=== PATIENT | male | born 1960 | race Caucasian/White ===

== ENCOUNTER 2017-08-18 20:06 | Emergency (ER) | payer BC | END 2017-08-18 21:09 | disposition home or self-care (01) | LOC: ER 20:06 | DX: S30.823A Blister (nonthermal) of scrotum and testes, initial encounter (principal); E11.9 Type 2 diabetes mellitus without complications; E78.00 Pure hypercholesterolemia, unspecified; G89.29 Other chronic pain; X58.XXXA Exposure to other specified factors, initial encounter; Y93.89 Activity, other specified; Y92.89 Other specified places as the place of occurrence of the external cause; Y99.8 Other external cause status | CPT/HCPCS: 99281 ==

== ENCOUNTER → 2018-05-05 | Outpatient (CLI) | payer BC ==
[2017-08-18 20:28] VITALS: BP 141/78
[~2018-05-05] MED LIST: ATOR40TA59 PO; LEVO175T5 PO; METF500T16 PO; hydrocort PO
--- NOTE | 2018-05-05 11:46 | KCIC ---
MRI of the lumbar spine without contrast 05/05/2018 CLINICAL HISTORY: Low back pain which radiates down the left hip worsening over last several months TECHNIQUE: Unenhanced T1-weighted and T2-weighted sagittal and axial and inversion recovery sagittal images of the lumbar spine were obtained. FINDINGS: Minimal S-shaped curvature of the thoracolumbar spine is seen. Degenerative signal changes are seen involving all of the disks of the lumbar spine. Degenerative signal changes are seen within the marrow surrounding these discs. Loss of height of the L4-5 and L5-S1 discs is noted. The conus medullaris is normal morphology, position, and signal characteristics. At the L1-2 disc space there is a mild to moderate generalized disc bulge. This is eccentric to the right. Superimposed on this disc bulge is a right paracentral focal disc protrusion. This measures 4 mm in AP diameter. Degenerative changes are seen involving the facet joints bilaterally. There is mild ligamentum flavum hypertrophy bilaterally. There is prominence of the posterior epidural fat. These findings when combined result in mild to moderate right greater than left central spinal canal stenosis. No neural foraminal stenosis is seen. At the L2-3 disc space there is a moderate generalized disc bulge. This is eccentric to the right. Degenerative changes are seen involving the facet joints bilaterally. There is moderate ligament flavum hypertrophy bilaterally. There is prominence of the posterior epidural fat. These findings when combined result in mild central spinal canal stenosis. No neural foraminal stenosis is seen. At the L3-4 disc space there is a mild to moderate generalized disc bulge. This is eccentric to the right. Degenerative changes are seen involving the facet joints bilaterally. There is mild ligamentum flavum hypertrophy bilaterally. There is prominence of the posterior epidural fat. These findings when combined result in mild central spinal canal stenosis. No neural foraminal stenosis is seen. At the L4-5 disc space there is a mild generalized disc bulge. Superimposed on this disc bulge is a right paracentral focal disc protrusion. This measures 2 mm in AP diameter. Degenerative changes are seen involving the facet joints bilaterally. There is moderate ligamentum flavum hypertrophy bilaterally. There is prominence of the posterior epidural fat. These findings when combined result in mild central spinal canal stenosis. No neural foraminal stenosis is seen. At the L5-S1 disc space there is a mild generalized disc bulge. Superimposed on this disc bulge is a focal central disc osteophyte complex. This measures 5 mm in AP diameter. Degenerative changes are seen involving the facet joints bilaterally. These findings when combined result in mild central spinal canal stenosis. No neural foraminal stenosis is seen. IMPRESSION: The changes of degenerative disc disease are seen throughout the lumbar spine. These findings result in mild to moderate right greater than left central spinal canal stenosis at L1-2 and mild central spinal canal stenosis at L2-3, L3-4 and L4-5 and L5-S1. No neural foraminal stenosis is seen. Electronically signed by: Wilbur Alvarez MD (05/05/2018 11:41 AM) [facility]
== END | disposition home or self-care (01) ==
LOC: KCIC MRI 09:22
PROVIDERS: ATTEND Orthopaedic Surgery
DX: M51.16 Intervertebral disc disorders with radiculopathy, lumbar region (principal); M48.07 Spinal stenosis, lumbosacral region; M47.26 Other spondylosis with radiculopathy, lumbar region; M16.12 Unilateral primary osteoarthritis, left hip
CPT/HCPCS: 72148

== ENCOUNTER → 2018-05-29 | Outpatient (CLI) | payer BC ==
[2017-08-18 20:28] VITALS: BP 141/78
[~2018-05-29] MED LIST changes: +ACET500T68 PO; +CHOL2000 PO; +DULA1.5P SQ; +HYDR-2761 PO; +HYDR5TAB3 PO
[2018-05-29 09:12] LABS: BASO # 0.1 x10^3/uL (0.0-0.2); BASO % 1 % (0-3); EOS # 0.2 x10^3/uL (0.0-0.7); EOS % 2 % (0-3); HEMATOCRIT 41.4 % (39.0-53.0); HEMOGLOBIN 13.8 g/dL (13.0-17.5); LYMPH % 38 % (24-48); MEAN CORPUSCULAR HEMOGLOBIN 28 pg (25-35); MEAN CORPUSCULAR HGB CONC 33 g/dL (31-37); MEAN CORPUSCULAR VOLUME 84 fL (79-100); MONO # 0.7 x10^3/uL (0.0-1.1); MONO % 8 % (0-9); NEUT % 51 % (31-73); PLATELET COUNT 265 x10^3/uL (140-400); RED BLOOD COUNT 4.95 x10^6/uL (4.30-5.70); WHITE BLOOD COUNT 7.9 x10^3/uL (4.0-11.0)
[2018-05-29 09:25] LABS: ALBUMIN 3.5 g/dL (3.4-5.0); CREATININE 0.9 mg/dL (0.7-1.3); GFR 87.3; POTASSIUM 4.3 mmol/L (3.5-5.1)
[2018-05-29 09:26] LABS: PROTHROMBIN TIME PATIENT 12.1 SEC (11.7-14.0)
[2018-05-29 09:27] LABS: BILIRUBIN,URINE NEGATIVE (NEG); CLARITY,URINE CLEAR; COLOR,URINE YELLOW; NITRITE,URINE NEGATIVE (NEG); PROTEIN,URINE NEGATIVE (NEG-TRACE); UROBILINOGEN,URINE 0.2 mg/dL (0.2 mg/dL)
[2018-05-29 09:39] LABS: BACTERIA,URINE FEW /HPF (0-FEW); SQUAMOUS EPITHELIAL CELL,UR OCC /LPF
[2018-05-29 09:43] LABS: RBC,URINE 0 /HPF (0-2)
--- NOTE | 2018-05-29 12:06 | EKG ---
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
--- NOTE | 2018-05-29 13:06 | RAD ---
Chest, 2 views, 05/29/2018: HISTORY: Hyperlipidemia, joint replacement class The heart size is normal. No pulmonary infiltrate is seen. There is no evidence of pleural fluid. Mild scattered spurs are present in the spine. IMPRESSION: No acute cardiopulmonary abnormality is detected. Electronically signed by: Spencer Martinez MD (05/29/2018 1:01 PM) [facility]
== END | disposition home or self-care (01) ==
LOC: SURGPAT 13:29
PROVIDERS: ATTEND Orthopaedic Surgery
DX: Z01.818 Encounter for other preprocedural examination (principal); M16.12 Unilateral primary osteoarthritis, left hip; E78.5 Hyperlipidemia, unspecified
CPT/HCPCS: 36415; 71046; 80048; 81001; 82040; 85025; 85610; 85651; 85730; 87086; 87641; 93005

== ENCOUNTER 2018-06-13 09:42 | Inpatient (IN) | payer BC ==
[~2018-06-13] VITALS: Ht 182.9 cm; Wt 118.4 kg
[2018-06-13] VITALS (9 sets, daily range): BP systolic 102–134; BP diastolic 70–82
[~2018-06-13 09:42] MED LIST changes: +HYDROmorphone 2 MG/ML VIAL IV PRN; +IV RINGERS,LACTATED 1000ML 1,000 ML IV SCH; +LIDOCAINE 1% PF 2 ML VIAL. ID PRN; +LIDOCAINE 2% PF 5 ML VIAL. ONE; +MORPHINE SULFATE 4 MG/ML VIAL. IV PRN; +MORPHINE SULFATE 5 MG, KETOROLAC 30MG VIAL 30 MG, ROPIVacaine 0.5% PF 60 ML, EPINEPHrin... INT ART ONE; +NEOSTIGMINE 10 MG/10 ML VIAL. ONE; +ONDANSETRON PF 4 MG/2 ML VIAL. IV PRN; +PROCHLORPERAZINE 10 MG/2 ML VIAL. IV PRN; +PROPOFOL 20 ML IV ONE; +ROCURONIUM 50 MG/5 ML VIAL. ONE; +TRANEXAMIC ACID 1,000 MG in IV NORMAL SALINE 50ML 50 ML INJ ONE; +fentaNYL PF VIAL 100 MCG/2 ML VIAL IV PRN; +fentaNYL PF VIAL 100 MCG/2 ML VIAL ONE
[2018-06-13] MEDS ORDERED: HYDROcodone/APAP 7.5/325MG 1 TAB TABLET ONE (10:20)
[2018-06-13] MEDS ORDERED: HYDROcodone/APAP 7.5/325MG 1 TAB TABLET PO ONE (10:45)
[2018-06-13] MEDS ORDERED: HYDROCORTISONE SOD SUCC/PF 100 MG/2 ML VIAL. ONE (11:15)
[2018-06-13] MEDS ORDERED: DEXAMETHASONE SOD PHOS 20 MG/5 ML VIAL. ONE (11:15)
[2018-06-13] MEDS ORDERED: DESFLURANE 61 TO 120 MINUTES IH ONE (11:15)
[2018-06-13] MEDS ORDERED: ONDANSETRON PF 4 MG/2 ML VIAL. ONE (11:16)
[2018-06-13] MEDS ORDERED: GLYCOPYRROLATE 1 MG/5 ML VIAL. ONE (11:17)
[2018-06-13] MEDS ORDERED: PHENYLEPHRINE 10 MG/ML VIAL. ONE (11:23)
[2018-06-13] MEDS ORDERED: fentaNYL PF VIAL 100 MCG/2 ML VIAL ONE (11:59)
[2018-06-13] MEDS ORDERED: IV NORMAL SALINE 1000ML BAG 1,000 ML IV SCH (13:29)
[2018-06-13] MEDS ORDERED: fentaNYL PF VIAL 100 MCG/2 ML VIAL IV PRN (13:30)
[2018-06-13] MEDS ORDERED: DEXTROSE 50% 25 GM / 50ML DISP.SYRIN. IV PRN (13:30)
[2018-06-13] MEDS ORDERED: PROCHLORPERAZINE 5 MG TABLET. PO PRN (13:30)
[2018-06-13] MEDS ORDERED: oxyCODONE IR 5 MG TABLET PO PRN (13:30)
[2018-06-13] MEDS ORDERED: ZOLPIDEM 5 MG TABLET. PO PRN (13:30)
[2018-06-13] MEDS ORDERED: MORPHINE SULFATE 4 MG/ML VIAL. IV PRN (13:30)
[2018-06-13] MEDS ORDERED: 0.9 % SODIUM CHLORIDE 10 ML DISP.SYRIN. IV PRN (13:30)
[2018-06-13] MEDS ORDERED: CALCIUM CARBONATE 500 MG TAB.CHEW PO PRN (13:30)
[2018-06-13] MEDS ORDERED: diphenhydrAMINE 50 MG/ML VIAL IV PRN (13:30)
[2018-06-13] MEDS ORDERED: PROCHLORPERAZINE 10 MG/2 ML VIAL. ONE (13:45)
[2018-06-13] MEDS: fentaNYL PF VIAL 100 MCG/2 ML VIAL IV PRN ×4 (13:51→14:44)
[2018-06-13] MEDS ORDERED: INSULIN LISPRO 100 UNIT/ML 3ML VIAL. SQ PRN (14:00)
--- NOTE | 2018-06-13 14:22 | RAD ---
PELVIS Clinical Indication: POST OP LEFT HIP Comparison: AP pelvis and left hip May 01, 2018. Findings: There is left hip arthroplasty. On single view the alignment appears anatomic. There is no acute fracture. There is lateral surgical drain. No acute pelvic fracture. Moderate degenerative arthropathy of the right hip. Phleboliths right pelvis. IMPRESSION: Left hip arthroplasty. No acute abnormality. Electronically signed by: Isaiah Remy MD (06/13/2018 2:19 PM) [id number]
--- NOTE | 2018-06-13 15:01 | NUR ---
Arrived to unit from PACU by bed. Awakens easily. C/o dull ache left hip. Left hip dressing is d/i with DAMIAN, IAC and Hemovac drain. Moves all extremities, warm to touch and pedal pulses + bilaterally. LOLA's and SCD's on bilaterally. IVF's intact and infusing. O2 at 2l per n/c. Took sips of lemon ute mountain soda without difficulty. Oriented to room and controls. Side rails up x's 2 with call light within reach. Son at bedside. Cont. monitor.
[2018-06-13] MEDS ORDERED: WARFARIN 7.5 MG TABLET. PO ONE (16:00)
[2018-06-13] MEDS: ONDANSETRON ODT 4 MG TAB.RAPDIS. PO SCH ×2 (17:07→22:55)
[2018-06-13] MEDS: FERROUS SULFATE 325 MG TABLET. PO SCH (17:07)
[2018-06-13] MEDS: metFORMIN 500 MG TABLET PO SCH (17:15)
[2018-06-13] MEDS: INSULIN LISPRO 300 UNITS/3 ML INSULN.PEN. SQ SCH ×2 (17:26→23:03)
[2018-06-13] MEDS: KETOROLAC 30MG VIAL 30 MG, BUPIVACAINE MPF 0.25% 20 ML, EPINEPHrine 0.5 MG in TOTAL VOL... INT ART SCH (17:39)
[2018-06-13] MEDS: ONDANSETRON PF 4 MG/2 ML VIAL. IV SCH ×2 (18:00→22:55)
[2018-06-13] MEDS: oxyCODONE IR 5 MG TABLET PO PRN (20:55)
[2018-06-13] MEDS: HYDROCORTISONE 10 MG TABLET PO SCH (20:55)
--- NOTE | 2018-06-13 21:09 | NUR ---
LR IVF still running and decreased to TKO 10 mls/hr as patient voiding eating and drinking well.
--- NOTE | 2018-06-13 22:41 | PDOC4 ---
Operative Note Operative Note Date of surgery: 06/13/2018 Preoperative diagnosis: Degenerative joint disease left hip Postoperative diagnosis: Same Operative procedure: Left total hip arthroplasty Surgeon: Bobbi Assist: Teri Meza Anesthesia: Gen. Estimated blood loss: 250 mL Complications: None Specimens: Femoral head to pathology Operative indications: A she is a 58-year-old male with long-standing left hip pain significantly worsening unresponsive to nonoperative management and increasingly limiting to his activities of daily living. We talked about possibility of total hip arthroplasty risks benefits postoperative course of the procedure including the possibility of fracture infection leg length inequality instability premature wear or loosening medical or other anesthetic complications among others including nerve or blood vessel damage. All his questions were answered he wishes to proceed with surgical evaluation and treatment. Operative text: Patient was identified procedure verified patient placed in the supine position on the operating table. After adequate amounts of general anesthesia were administered he was placed in the decubitus position left side up using the Stulberg hip positioners and all bony prominences were well- padded. The left hip was prepped and draped in standard sterile fashion and after timeout was performed patient procedure identified and verified curvilinear incision was made over the greater trochanter constituting a posterior approach to the left hip. Iliotibial band and gluteal fascia were split in line with their fibers Charnley retractor was placed bleeding points controlled by electrocautery external rotators were detached from their insertion hip capsule was split in a T fashion the hip was dislocated femoral head was removed after a femoral neck cut using the guide and femoral head was sized at approximately a size 53 mm. The contents of the fovea and labrum were excised after the acetabulum was exposed using headed pins. Reaming was carried out up to a size 57 and a 58 outer diameter hemispherical coated [employer] cluster hole shell was impacted into place in proper version and inclination a single superiorly directed screw was placed for additional fixation and a 40 mm in terminal diameter standard acetabular liner was impacted into place. The femur was then prepared drilled and broached with a size 16 femoral component best reproduction of stability and offset was achieved with a high offset component +0 and he was noted to have excellent stability mormon of leg length and offset with stability to 60 internal rotation at 90 hip flexion. Trial femoral component was removed and a size 16 Synergy porous high offset femoral component was impacted in place in proper version with a 40 mm Oxinium modular femoral head +0 that was impacted to engage the Carrillo taper. Similar offset and stability were noted as above thorough irrigation again carried out normal saline solution hip capsule and external rotators were reattached transosseously with #5 Ethibond suture Hemovac drain and pain catheter were placed pain catheter mixture was injected throughout the joint capsule and subcutaneous tissues fashion was closed with #1 PDS strata fix suture subcutaneous closure with buried Vicryl suture skin closure with subcuticular strata fix 3-0 Monocryl apollo drain was placed patient was returned to recovery room in stable condition having tolerated procedure well. physiotherapy assistant was provided by Denis Gupta and later relieved by Teri Simeon who assisted in the prepping draping retraction and skin closure JENNIFER HURD MD Jun 13, 2018 22:41
[2018-06-14 01:41] VITALS: BP 129/77
[2018-06-14] MEDS: oxyCODONE IR 5 MG TABLET PO PRN ×2 (03:35→10:10)
[2018-06-14 05:08] LABS: PROTHROMBIN TIME PATIENT 13.9 SEC (11.7-14.0)
[2018-06-14] MEDS ORDERED: MAGNESIUM HYDROXIDE 2,400 MG/30 ML ORAL.SUSP. PO PRN (06:00)
[2018-06-14] MEDS: ONDANSETRON PF 4 MG/2 ML VIAL. IV SCH ×2 (06:04→12:00)
[2018-06-14] MEDS: ONDANSETRON ODT 4 MG TAB.RAPDIS. PO SCH ×2 (06:04→12:00)
[2018-06-14] MEDS: KETOROLAC 30MG VIAL 30 MG, BUPIVACAINE MPF 0.25% 20 ML, EPINEPHrine 0.5 MG in TOTAL VOL... INT ART SCH (06:05)
[2018-06-14] MEDS: traMADol 50 MG TABLET PO SCH ×4 (06:05→23:59)
[2018-06-14] MEDS: INSULIN LISPRO 300 UNITS/3 ML INSULN.PEN. SQ SCH ×3 (06:07→17:11)
[2018-06-14 06:34] VITALS: BP 123/78
[2018-06-14] MEDS: metFORMIN 500 MG TABLET PO SCH ×2 (08:24→17:08)
[2018-06-14] MEDS: FERROUS SULFATE 325 MG TABLET. PO SCH ×2 (08:24→17:08)
[2018-06-14] MEDS: HYDROCORTISONE 10 MG TABLET PO SCH ×2 (08:24→20:54)
[2018-06-14] MEDS: SENNOSIDES/DOCUSATE 8.6/50MG TABLET. PO SCH (08:25)
[2018-06-14] MEDS: MULTIVITAMIN with MINERAL TABLET. PO SCH (08:25)
[2018-06-14] MEDS: CHOLECALCIFEROL (VITAMIN D3) 1,000 UNIT TABLET PO SCH (08:26)
[2018-06-14] MEDS: ACETAMINOPHEN 500 MG TABLET PO SCH ×3 (08:26→20:58)
[2018-06-14] MEDS: LEVOTHYROXINE 175 MCG TABLET PO SCH (10:08)
[2018-06-14] MEDS ORDERED: ONDANSETRON PF 4 MG/2 ML VIAL. IV PRN (12:00)
[2018-06-14] MEDS ORDERED: ONDANSETRON ODT 4 MG TAB.RAPDIS. PO PRN (12:00)
[2018-06-14] MEDS ORDERED: BISACODYL 10 MG SUPP.RECT. PR PRN (16:00)
[2018-06-14] MEDS ORDERED: WARFARIN 5 MG TABLET. PO ONE (16:30)
--- NOTE | 2018-06-14 16:36 | NUR ---
Pharmacy Warfarin Dosing Note S:Pharmacy consulted to assist with anticoagulation therapy started 06/13/18 with target INR: 1.6 - 2.5 O:FABRICE LANCE is a 58 year old M with MEDH[facility] LABS: Last INR: 1.1 Last HGB: Last HCT: Last PLT: Last dose of 7.5 mg given on 06/13/18 at 1708 Previous Regimen: Vitamin K given: N Drug Interaction Changes: Ongoing Drug Interactions: A:INR of 1.1 is below desired range. Target range for this patient is: 1.6 - 2.5. P: Warfarin dose: 5 mg Today at 1600 Bridge Therapy: None Next INR due tomorrow. Pharmacy anticoagulation service will continue to follow. Gurpreet Minor [facility], 06/14/18 1765
[2018-06-14 17:06] VITALS: BP 124/80
--- NOTE | 2018-06-14 17:07 | NUR ---
original surgical dressing removed; tolerated well. IAC (blue tip intact ) and Hemovac removed without difficulty; tolerated well. DAMIAN dressing has small amount old drainage at the top of incision.
--- NOTE | 2018-06-14 19:31 | PDOC ---
PROGRESS NOTES Subjective Subjective Problems overnight: Doing well today less pain on ambulation but some hip muscle soreness Objective Vital Signs Vital Signs Date Time Temp Pulse Resp B/P (MAP) Pulse Ox O2 Delivery O2 Flow Rate FiO2 06/14/18 18:12 Room Air 06/14/18 17:06 98.3 82 20 124/80 (95) 96 98.3 06/13/18 16:30 2.0 Physical Exam Kylie drain intact leg lengths equal distal neurovascular status intact good early range of motion Labs Laboratory Tests Test 06/13/18 10:10 06/13/18 10:13 06/13/18 13:57 06/13/18 14:49 Prothrombin Time 13.0 SEC (11.7-14.0) Prothromb Time International Ratio 1.0 (0.8-1.1) Activated Partial Thromboplast Time 28 SEC (24-38) Glucose (Fingerstick) 123 mg/dL (70-99) 261 mg/dL (70-99) 234 mg/dL (70-99) Test 06/13/18 17:06 06/13/18 22:54 06/14/18 03:50 06/14/18 06:03 Glucose (Fingerstick) 193 mg/dL (70-99) 180 mg/dL (70-99) 151 mg/dL (70-99) Prothrombin Time 13.9 SEC (11.7-14.0) Prothromb Time International Ratio 1.1 (0.8-1.1) Test 06/14/18 11:45 06/14/18 17:01 Glucose (Fingerstick) 147 mg/dL (70-99) 151 mg/dL (70-99) Laboratory Tests Test 06/13/18 22:54 06/14/18 03:50 06/14/18 06:03 06/14/18 11:45 Glucose (Fingerstick) 180 mg/dL (70-99) 151 mg/dL (70-99) 147 mg/dL (70-99) Prothrombin Time 13.9 SEC (11.7-14.0) Prothromb Time International Ratio 1.1 (0.8-1.1) Test 06/14/18 17:01 Glucose (Fingerstick) 151 mg/dL (70-99) Imaging Postoperative x-rays show excellent positioning of total hip arthroplasty components Assessment Assessment POD# [1], S/P [total hip arthroplasty] Plan Plan of Care Weightbearing as tolerated standard total hip precautions Coumadin anticoagulation JENNIFER HURD MD Jun 14, 2018 19:31
[2018-06-15] MEDS: ACETAMINOPHEN 500 MG TABLET PO SCH ×4 (02:40→20:58)
[2018-06-15 04:49] LABS: HEMATOCRIT 29.4 % (39.0-53.0); HEMOGLOBIN 9.7 g/dL (13.0-17.5)
[2018-06-15 05:02] LABS: PROTHROMBIN TIME PATIENT 14.6 SEC (11.7-14.0)
[2018-06-15] MEDS: INSULIN LISPRO 300 UNITS/3 ML INSULN.PEN. SQ SCH ×2 (06:00)
--- NOTE | 2018-06-15 06:01 | NUR ---
sliding scale insulin every 6 hours is for PACU use only to be discontinue if pt no longer in PACU
[2018-06-15] MEDS: LEVOTHYROXINE 175 MCG TABLET PO SCH (06:20)
[2018-06-15] MEDS: traMADol 50 MG TABLET PO SCH ×3 (06:21→17:45)
[2018-06-15 06:25] VITALS: BP 112/70
[2018-06-15] MEDS: FERROUS SULFATE 325 MG TABLET. PO SCH ×2 (08:22→16:46)
[2018-06-15] MEDS: CHOLECALCIFEROL (VITAMIN D3) 1,000 UNIT TABLET PO SCH (08:22)
[2018-06-15] MEDS: HYDROCORTISONE 10 MG TABLET PO SCH ×2 (08:22→20:58)
[2018-06-15] MEDS: metFORMIN 500 MG TABLET PO SCH ×2 (08:23→16:46)
[2018-06-15] MEDS: MULTIVITAMIN with MINERAL TABLET. PO SCH (08:23)
[2018-06-15] MEDS: SENNOSIDES/DOCUSATE 8.6/50MG TABLET. PO SCH (08:33)
--- NOTE | 2018-06-15 10:30 | NUR ---
Pharmacy Warfarin Dosing Note S:Pharmacy consulted to assist with anticoagulation therapy started 06/13/18 with target INR: 1.6 - 2.5 O:FABRICE LANCE is a 58 year old M with [facility] LABS: Last INR: 1.2 Last HGB: 9.7 Last HCT: 29.4 Last PLT: - Last dose of 5 mg given on 06/14/18 at 1708 Previous Regimen: Vitamin K given: N Drug Interaction Changes: Ongoing Drug Interactions: A:INR of 1.2 is below desired range. Target range for this patient is: 1.6 - 2.5 P: Warfarin dose: 5 mg Today at 1600 Bridge Therapy: None Next INR due TOMORROW. Pharmacy anticoagulation service will continue to follow. HOUSTON ZAMBRANO [facility], 06/15/18 1034
[2018-06-15] MEDS ORDERED: WARFARIN 5 MG TABLET. PO ONE (16:00)
--- NOTE | 2018-06-15 17:09 | PATHOLOGY ---
[facility] Accession Number: [id number] . 01 Material submitted: . LEFT FEMORAL HEAD . 02 Diagnosis: Femoral head and focally attached soft tissue, left total hip arthroplasty: - Degenerative arthritis. . (JPM:mm; 06/15/2018) [facility]/06/15/2018 . 02 Comment: There is no evidence of malignancy. . (JPM:mm; 06/15/2018) . 02 Electronically signed: . Erlin Oakley MD, Pathologist NPI- [id number] . 01 Gross description: . The specimen is received in formalin, labeled "Markel Kelley, left femoral head", is a femoral head measurin 5.5 x 4.8 x 4.6 cm with attached femoral neck measuring 1.0 cm in length by 3.7 x 3.4 cm. The femoral neck resection margin is smooth and shows dominguez-brown, trabeculated bone. The articular cartilage shows an area of eburnation with the remaining dominguez yellow and irregular. Peripheral osteophytes are identified. Sectioning reveals thinning of the articular cartilage corresponding to the eburnation with the underlying bone, dominguez-yellow, diffusely hemorrhagic. Repair Department Supervisor tissue is submitted in A1 after decalcification. (femoral neck margin = inked blue) ([facility]; 06/13/2018) [facility]S . 02 Pathologist provided ICD-10: M16.12 . 02 CPT . 839800, 522994 Specimen Comment: A courtesy copy of this report has been sent to Specimen Comment: [phone], . Specimen Comment: Report sent to / DR BUSTOS Specimen Comment: A duplicate report has been generated due to demographic updates. Performed at: 01 [facility], [place], [place] [id number] MD Jared Verma MD Phone: [phone] Performed at: 02 [facility] [address] [place] [id number] MD Erlin Oakley MD Phone: [phone]
[2018-06-15 18:29] VITALS: BP 106/65
[2018-06-16] MEDS: traMADol 50 MG TABLET PO SCH ×3 (00:50→11:31)
[2018-06-16] MEDS: ACETAMINOPHEN 500 MG TABLET PO SCH ×3 (03:00→14:27)
[2018-06-16 05:31] LABS: HEMATOCRIT 29.2 % (39.0-53.0); HEMOGLOBIN 9.8 g/dL (13.0-17.5)
[2018-06-16] MEDS: LEVOTHYROXINE 175 MCG TABLET PO SCH (06:13)
[2018-06-16 06:19] VITALS: BP 141/82
[2018-06-16 06:57] LABS: PROTHROMBIN TIME PATIENT 14.4 SEC (11.7-14.0)
[2018-06-16] MEDS: HYDROCORTISONE 10 MG TABLET PO SCH (07:46)
[2018-06-16] MEDS: SENNOSIDES/DOCUSATE 8.6/50MG TABLET. PO SCH (07:47)
[2018-06-16] MEDS: MULTIVITAMIN with MINERAL TABLET. PO SCH (07:47)
[2018-06-16] MEDS: CHOLECALCIFEROL (VITAMIN D3) 1,000 UNIT TABLET PO SCH (07:47)
[2018-06-16] MEDS: FERROUS SULFATE 325 MG TABLET. PO SCH (07:47)
[2018-06-16] MEDS: metFORMIN 500 MG TABLET PO SCH (07:47)
--- NOTE | 2018-06-16 10:56 | NUR ---
Pharmacy Warfarin Dosing Note S: Pharmacy consulted to assist with anticoagulation therapy started 06/13/18 O: NATALIOFABRICE LAMA is a 58 year old M with MEDH[facility] LABS: Last INR: 1.2 Last HGB: 9.8 Last HCT: 29.9 Last PLT: - Last dose of 5 mg given on 06/15/18 at 1708 Vitamin K given: N Ongoing Drug Interactions: Synthroid A:INR of 1.2 is below desired range. Target range for this patient is: 1.6 - 2.5 P: Warfarin dose: 8 mg today prior to discharge Discharge patient on warfarin 6 mg/day Next INR due June 19 Outpatient Pharmacy anticoagulation service will continue to follow. SHELBY ALANIZ [facility], 06/16/18 [id number]
--- NOTE | 2018-06-16 12:01 | PDOC ---
PROGRESS NOTES Subjective Subjective Problems overnight: A bit more sore today but getting up and around well Objective Vital Signs Vital Signs Date Time Temp Pulse Resp B/P (MAP) Pulse Ox O2 Delivery O2 Flow Rate FiO2 06/16/18 11:31 Room Air 06/16/18 06:19 98.3 72 18 141/82 (101) 96 98.3 06/15/18 20:00 2.0 Physical Exam Leg lengths equal good stability distal neurovascular status intact apollo drain intact Labs Laboratory Tests Test 06/14/18 17:01 06/14/18 20:29 06/15/18 04:35 06/15/18 06:32 Glucose (Fingerstick) 151 mg/dL (70-99) 138 mg/dL (70-99) 105 mg/dL (70-99) Hemoglobin 9.7 g/dL (13.0-17.5) Hematocrit 29.4 % (39.0-53.0) Mean Corpuscular Hemoglobin Concent 33 g/dL (31-37) Prothrombin Time 14.6 SEC (11.7-14.0) Prothromb Time International Ratio 1.2 (0.8-1.1) Test 06/15/18 11:40 06/15/18 16:39 06/15/18 21:04 06/16/18 04:30 Glucose (Fingerstick) 132 mg/dL (70-99) 137 mg/dL (70-99) 137 mg/dL (70-99) Hemoglobin 9.8 g/dL (13.0-17.5) Hematocrit 29.2 % (39.0-53.0) Mean Corpuscular Hemoglobin Concent 34 g/dL (31-37) Prothrombin Time 14.4 SEC (11.7-14.0) Prothromb Time International Ratio 1.2 (0.8-1.1) Laboratory Tests Test 06/15/18 16:39 06/15/18 21:04 06/16/18 04:30 Glucose (Fingerstick) 137 mg/dL (70-99) 137 mg/dL (70-99) Hemoglobin 9.8 g/dL (13.0-17.5) Hematocrit 29.2 % (39.0-53.0) Mean Corpuscular Hemoglobin Concent 34 g/dL (31-37) Prothrombin Time 14.4 SEC (11.7-14.0) Prothromb Time International Ratio 1.2 (0.8-1.1) Assessment Assessment POD# [2], S/P [total hip arthroplasty] Plan Plan of Care Medically stable, continue Coumadin anticoagulation Continue physical therapy weightbearing as tolerated standard total hip precautions Likely home with home health on discharge JENNIFER HURD MD Jun 16, 2018 12:01
[2018-06-16] MEDS ORDERED: FERR325T14 PO (12:40)
[2018-06-16] MEDS ORDERED: WARF6TAB49 PO (12:40)
[2018-06-16] MEDS ORDERED: TRAM50TA PO (12:43)
[2018-06-16] MEDS ORDERED: WARFARIN 4 MG TABLET. PO ONE (13:00)
--- NOTE | 2018-06-16 15:05 | NUR ---
Patient discharge education completed with the patient and his son present. Education done about the DAMIAN dressing and pharmacy spoke with the patient about his coumadin. No concerns noted upon discharge. Script given to the patient for Tramadol. Education completed by this nurse, Dr Martines, therapy, and pharmacy. Patient left with all of his belongings and left the building in a wheelchair with his son. Coumadin given to patient prior to discharge. Walker given to patient prior to discharge. No concerns noted.
--- NOTE | 2018-06-16 17:51 | DS ---
DATE OF DISCHARGE: 06/16/2018 PRINCIPAL DIAGNOSIS: Degenerative joint disease, left hip. PROCEDURE: Left total hip arthroplasty. DISPOSITION MEDICATIONS: Tramadol 50 mg p.o. q. 4 hours p.r.n. pain, Coumadin as directed by Anticoagulation Clinic. Resume preoperative medications. ACTIVITY: Weightbearing as tolerated, standard total hip precautions. Follow up Dr. Martines in 2 weeks. Maintain DAMIAN drain. DISCHARGE INSTRUCTIONS: Report any redness, drainage, fever, chills, uncontrolled pain or other problems. BRIEF DESCRIPTION OF HOSPITAL COURSE: The patient underwent an uncomplicated total hip arthroplasty on the left, maintained medical stability. He progressed well with physical therapy. His hemoglobin was noted to be 9.7 and 9.8, stable postoperatively. He was asymptomatic, progressed well with physical therapy. Pain well controlled on tramadol and he was discharged to home in stable condition. JENNIFER MARTINES MD DR: RICHARD/octavia JOB#: [id number] / [id number]
[2018-06-20] MEDS ORDERED: NON FORMULARY ITEM (Dulaglutide (Trulicity) 1.5 MG) SQ SCH (09:00)
== END 2018-06-16 15:05 | disposition home or self-care (01) | DRG 470 ==
LOC: OPSVCIP 09:42 → 4 SOUTHEST 15:01
PROVIDERS: ADMIT Orthopaedic Surgery; ATTEND Orthopaedic Surgery
PROC: 0SRB06Z Replacement of Left Hip Joint with Oxidized Zirconium on Polyethylene Synthetic Substitute, Open Approach (ICD-10-PCS; principal; 2018-06-13 11:15)
DX: M16.12 Unilateral primary osteoarthritis, left hip (principal); Z96.642 Presence of left artificial hip joint; M54.16 Radiculopathy, lumbar region
CPT/HCPCS: 36415; 72170; 82962; 85014; 85018; 85610; 85730; 86850; 86900; 86901; 88304; 88311; A7015; C1713; J0171; J0696; J1100; J1720; J1815; J1885; J2001; J2270; J2405; J2704; J2710; J2795; J3010; J3490; J7030; J7120; Q0162; 97116; 97150; 97530; 97535

== ENCOUNTER → 2018-07-17 | Outpatient (CLI) | payer BC ==
[~2018-07-17] MED LIST changes: +FERR325T14 PO; -HYDROmorphone 2 MG/ML VIAL IV PRN; -IV RINGERS,LACTATED 1000ML 1,000 ML IV SCH; -LIDOCAINE 1% PF 2 ML VIAL. ID PRN; -LIDOCAINE 2% PF 5 ML VIAL. ONE; -MORPHINE SULFATE 4 MG/ML VIAL. IV PRN; -MORPHINE SULFATE 5 MG, KETOROLAC 30MG VIAL 30 MG, ROPIVacaine 0.5% PF 60 ML, EPINEPHrin... INT ART ONE; -NEOSTIGMINE 10 MG/10 ML VIAL. ONE; -ONDANSETRON PF 4 MG/2 ML VIAL. IV PRN; -PROCHLORPERAZINE 10 MG/2 ML VIAL. IV PRN; -PROPOFOL 20 ML IV ONE; -ROCURONIUM 50 MG/5 ML VIAL. ONE; +TRAM50TA PO; -TRANEXAMIC ACID 1,000 MG in IV NORMAL SALINE 50ML 50 ML INJ ONE; +WARF6TAB49 PO; -fentaNYL PF VIAL 100 MCG/2 ML VIAL IV PRN; -fentaNYL PF VIAL 100 MCG/2 ML VIAL ONE
[2018-07-17 14:30] LABS: PROTHROMBIN TIME PATIENT 21.8 SEC (11.7-14.0)
== END | disposition home or self-care (01) ==
LOC: LAB 13:27
PROVIDERS: ATTEND Family Medicine
DX: Z79.01 Long term (current) use of anticoagulants (principal)
CPT/HCPCS: 36415; 85610

== ENCOUNTER 2019-05-12 09:37 | Emergency (ER) | payer BC ==
[~2019-05-12] VITALS: Ht 182.9 cm; Wt 260.0 kg
--- NOTE | 2019-05-12 09:56 | PHYS DOC ---
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 Patient reports he was eating breakfast, he started to have some discomfort to his epigastric area. States some chest pressure. States he has not had this discomfort in the past. Denies any cardiac history. States his pain comes worse and improves. Denies any nausea, denies vomiting. He has not taken any medications for this. Reports he is a diabetic, blood sugar has been 105 this morning, he is taking metformin and trulicity. Denies recent fevers. Denies recent illness, Review of Systems Review of Systems Constitutional: Denies fever or chills [] Eyes: Denies change in visual acuity, redness, or eye pain [] HENT: Denies nasal congestion or sore throat does report he is starting to have URI symptoms [] Respiratory: Denies cough or shortness of breath [] Cardiovascular: No additional information not addressed in HPI [] GI: Denies nausea, vomiting, bloody stools or diarrhea does report some epig astric tenderness, discomfort[] : Denies dysuria or hematuria [] Musculoskeletal: Denies back pain or joint pain [] Integument: Denies rash or skin lesions [] Neurologic: Denies headache, focal weakness or sensory changes [] Endocrine: Denies polyuria or polydipsia [] All other systems were reviewed and found to be within normal limits, except as documented in this note. Current Medications Current Medications Current Medications Medications (Trade) Dose Ordered Sig/Mark Start Time Stop Time Status Last Admin Dose Admin Aspirin (Children'S Aspirin) 324 mg 1X ONCE 05/12/19 10:30 05/12/19 10:31 DC 05/12/19 10:30 324 MG Hyoscyamine (Anaspaz) 0.125 mg 1X ONCE 05/12/19 11:45 05/12/19 11:46 DC 05/12/19 11:45 0.125 MG Info (CONTRAST GIVEN -- Rx MONITORING) 1 each PRN DAILY PRN 05/12/19 11:00 05/14/19 10:59 Iohexol (Omnipaque 300 Mg/ml) 75 ml 1X ONCE 05/12/19 11:00 05/12/19 11:01 DC 05/12/19 10:58 75 ML Sodium Chloride 1,000 ml @ 1,000 mls/hr 1X ONCE 05/12/19 10:00 05/12/19 10:59 DC 05/12/19 10:00 1,000 MLS/HR Allergies Allergies Allergies Coded Allergies Type Severity Reaction Last Updated Verified No Known Drug Allergies 08/14/14 No Physical Exam Physical Exam Constitutional: Well developed, well nourished, no acute distress, non-toxic appearance. Appears uncomfortable [] HENT: Normocephalic, atraumatic, bilateral external ears normal, oropharynx moist, no oral exudates, nose normal. 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 [] Eyes: PERRLA, EOMI, conjunctiva normal, no discharge. [] Neck: Normal range of motion, no tenderness, supple, no stridor. [] Cardiovascular:Heart rate regular rhythm, no murmur [] Lungs & Thorax: Bilateral breath sounds clear to auscultation [] Abdomen: Bowel sounds normal, soft, no masses, no pulsatile masses. Tenderness noted on palpation over epigastric, left upper quadrant.[] Skin: Warm, dry, no erythema, no rash. [] Back: No tenderness, no CVA tenderness. [] Extremities: No tenderness, no cyanosis, no clubbing, ROM intact, no edema. [] Neurologic: Alert and oriented X 3, normal motor function, normal sensory function, no focal deficits noted. [] Psychologic: Affect normal, judgement normal, mood normal. [] Current Patient Data Vital Signs Vital Signs Date Time Temp Pulse Resp B/P (MAP) Pulse Ox O2 Delivery O2 Flow Rate FiO2 05/12/19 09:55 98.5 99 17 189/105 (133) 99 Room Air 98.5 Lab Values Laboratory Tests Test 05/12/19 10:05 05/12/19 12:13 05/12/19 13:05 White Blood Count 8.6 x10^3/uL (4.0-11.0) Red Blood Count 5.02 x10^6/uL (4.30-5.70) Hemoglobin 14.4 g/dL (13.0-17.5) Hematocrit 42.5 % (39.0-53.0) Mean Corpuscular Volume 85 fL (79-100) Mean Corpuscular Hemoglobin 29 pg (25-35) Mean Corpuscular Hemoglobin Concent 34 g/dL (31-37) Red Cell Distribution Width 15.9 % (11.5-14.5) H Platelet Count 219 x10^3/uL (140-400) Neutrophils (%) (Auto) 63 % (31-73) Lymphocytes (%) (Auto) 28 % (24-48) Monocytes (%) (Auto) 6 % (0-9) Eosinophils (%) (Auto) 3 % (0-3) Basophils (%) (Auto) 1 % (0-3) Neutrophils # (Auto) 5.4 x10^3/uL (1.8-7.7) Lymphocytes # (Auto) 2.4 x10^3/uL (1.0-4.8) Monocytes # (Auto) 0.5 x10^3/uL (0.0-1.1) Eosinophils # (Auto) 0.2 x10^3/uL (0.0-0.7) Basophils # (Auto) 0.1 x10^3/uL (0.0-0.2) Segmented Neutrophils % 71 % (35-66) H Band Neutrophils % 2 % (0-9) Lymphocytes % 22 % (24-48) L Monocytes % 3 % (0-10) Eosinophils % 2 % (0-5) Platelet Estimate Adequate (ADEQUATE) Prothrombin Time 11.6 SEC (11.7-14.0) L Prothrombin Time INR 0.9 (0.8-1.1) Sodium Level 138 mmol/L (136-145) Potassium Level 3.9 mmol/L (3.5-5.1) Chloride Level 101 mmol/L (98-107) Carbon Dioxide Level 25 mmol/L (21-32) Anion Gap 12 (6-14) Blood Urea Nitrogen 10 mg/dL (8-26) Creatinine 1.2 mg/dL (0.7-1.3) Estimated GFR (Cockcroft-Gault) 62.4 BUN/Creatinine Ratio 8 (6-20) Glucose Level 201 mg/dL (70-99) H Lactic Acid Level 2.5 mmol/L (0.4-2.0) H Calcium Level 8.9 mg/dL (8.5-10.1) Total Bilirubin 0.4 mg/dL (0.2-1.0) Aspartate Amino Transferase (AST) 54 U/L (15-37) H Alanine Aminotransferase (ALT) 48 U/L (16-63) Alkaline Phosphatase 85 U/L (46-116) Troponin I Quantitative < 0.017 ng/mL (0.000-0.055) < 0.017 ng/mL (0.000-0.055) Total Protein 7.0 g/dL (6.4-8.2) Albumin 3.6 g/dL (3.4-5.0) Albumin/Globulin Ratio 1.1 (1.0-1.7) Amylase Level 48 U/L (25-115) Lipase 233 U/L (73-393) Thyroid Stimulating Hormone (TSH) 50.814 uIU/mL (0.358-3.74) H Urine Collection Type Unknown Urine Color Yellow Urine Clarity Clear Urine pH 5.0 Urine Specific [place] 1.020 Urine Protein Negative mg/dL (NEG-TRACE) Urine Glucose (UA) Negative mg/dL (NEG) Urine Ketones (Stick) Negative mg/dL (NEG) Urine Blood Negative (NEG) Urine Nitrite Negative (NEG) Urine Bilirubin Negative (NEG) Urine Urobilinogen Dipstick 0.2 mg/dL (0.2 mg/dL) Urine Leukocyte Esterase Negative (NEG) Urine RBC Rare /HPF (0-2) Urine WBC Rare /HPF (0-4) Urine Squamous Epithelial Cells Occ /LPF Urine Bacteria 0 /HPF (0-FEW) Laboratory Tests 05/12/19 10:05 Laboratory Tests 05/12/19 10:05 EKG EKG @0950 - Per Dr Beth - no STEMI. sinus rhythm. no ectopy noted.[] Radiology/Procedures Radiology/Procedures [] Findings: No consolidation or pleural effusion. Normal heart size. No pneumothorax. Impression: 1. No acute cardiopulmonary process. Electronically signed by: Jigar Hawkins DO (05/12/2019 10:27 AM) [facility] Findings: There is no abnormality of the limited visualized lung bases. There is probable hepatic steatosis. Gallbladder is present without obvious intraluminal abnormality by CT. There is no adrenal nodularity. No new focal abnormality is identified of the liver, pancreas, or spleen. Both kidneys enhance, no hydronephrosis. There is again some mild hazy density of the left mesenteric fat and also some scattered small mesenteric nodes. Accurate evaluation of bowel is somewhat limited without oral contrast. Bowel is not significantly dilated. There is no new free fluid or free air. Normal caliber appendix is visualized without adjacent inflammatory change. There is left hip arthroplasty with associated artifact. There is multilevel lumbar facet degenerative change. IMPRESSION: 1. No acute abnormality is identified. There is similar degree of nonspecific hazy density of the left mesenteric fat with interspersed small nodes. There is probable hepatic steatosis. Electronically signed by: Cain Agrawal MD (05/12/2019 11:04 AM) [facility] Course & Med Decision Making Course & Med Decision Making Pertinent Labs and Imaging studies reviewed. (See chart for details) [@1112 Reviewed imaging and labs, without specific findings. Will re-evaluate troponin as symptoms started at 0900. Will attempt Levsin for discomfort and abdominal cramping. Patient remains resting calm in room at this time. Patient does report he is taking levothyroxine 150 mcg a day. States he has been out of it for the last week, he does have prescription pharmacy to pick it up today.] @1330 Patient states he feels better following levsin. States he feels ready to go home. Will provide Rx for Levsin PRN, will fill his Rx for his thyroid meds and follow up with PCP Cade Disclaimer Cade Disclaimer This electronic medical record was generated, in whole or in part, using a voice recognition dictation system. The HEART Score for CP Pts HEART Score for Chest Pain: HEART Score for Chest Pain Response (Comments) Value History Slighlty/Non-Suspicious 0 ECG Normal 0 Age >45 - < 65 1 Risk Factors >3 Risk Factors or Hx CAD 2 Troponin < Normal Limit 0 Total 3 Risk Factors: Risk Factors: DM, Current or recent (<one month) smoker, HTN, HLP, family history of CAD, obesity. Risk Scores: Score 0 - 3: 2.5% MACE over next 6 weeks - Discharge Home Score 4 - 6: 20.3% MACE over next 6 weeks - Admit for Clinical Observation Score 7 - 10: 72.7% MACE over next 6 weeks - Early Invasive Strategies Departure Departure Impression: Primary Impression: Abdominal cramping Disposition: HOME, SELF-CARE Condition: IMPROVED Referrals: JAVY BUSTOS MD (PCP) Patient Instructions: Abdominal Pain (Nonspecific) Additional Instructions: As we discussed, make sure you fill your prescription and take your thyroid medications. We'll write you for the new medications for stomach coming to take this as needed for abdominal discomfort and pain similar to what you are having. Follow up with your primary care in the next few days Scripts Hyoscyamine Sulfate (LEVSIN) 0.125 Mg Tablet 0.125 MG PO Q4HRS PRN for PAIN, #20 TAB Prov: SUSI JAFFE APRN 05/12/19 SUSI JAFFE APRN May 12, 2019 09:56
[2019-05-12] MEDS ORDERED: IV NORMAL SALINE 1000ML BAG 1,000 ML IV ONE (10:00)
[2019-05-12 10:20] LABS: CALCIUM 8.9 mg/dL (8.5-10.1); CREATININE 1.2 mg/dL (0.7-1.3)
[2019-05-12 10:21] LABS: GFR 62.4; POTASSIUM 3.9 mmol/L (3.5-5.1)
[2019-05-12 10:23] LABS: BASO # 0.1 x10^3/uL (0.0-0.2); BASO % 1 % (0-3); EOS # 0.2 x10^3/uL (0.0-0.7); EOS % 3 % (0-3); HEMATOCRIT 42.5 % (39.0-53.0); HEMOGLOBIN 14.4 g/dL (13.0-17.5); LYMPH # 2.4 x10^3/uL (1.0-4.8); LYMPH % 28 % (24-48); MEAN CORPUSCULAR HEMOGLOBIN 29 pg (25-35); MEAN CORPUSCULAR HGB CONC 34 g/dL (31-37); MEAN CORPUSCULAR VOLUME 85 fL (79-100); MONO # 0.5 x10^3/uL (0.0-1.1); MONO % 6 % (0-9); NEUT # 5.4 x10^3/uL (1.8-7.7); NEUT % 63 % (31-73); PLATELET COUNT 219 x10^3/uL (140-400); RED BLOOD COUNT 5.02 x10^6/uL (4.30-5.70); RED CELL DISTRIBUTION WIDTH 15.9 % (11.5-14.5); WHITE BLOOD COUNT 8.6 x10^3/uL (4.0-11.0)
[2019-05-12 10:27] LABS: ALBUMIN 3.6 g/dL (3.4-5.0); ALBUMIN/GLOBULIN RATIO 1.1 (1.0-1.7); TOTAL BILIRUBIN 0.4 mg/dL (0.2-1.0)
[2019-05-12] MEDS ORDERED: ASPIRIN CHEWABLE 81 MG TABLET. PO ONE (10:30)
--- NOTE | 2019-05-12 10:30 | RAD ---
CHEST AP ONLY History: Chest pain Comparison: May 29, 2018 Findings: No consolidation or pleural effusion. Normal heart size. No pneumothorax. Impression: 1. No acute cardiopulmonary process. Electronically signed by: Jigar Hawkins DO (05/12/2019 10:27 AM) [facility]
[2019-05-12 10:36] LABS: PROTHROMBIN TIME PATIENT 11.6 SEC (11.7-14.0)
[2019-05-12] MEDS ORDERED: IOHEXOL 300 MG/ML 100ML VIAL. IV ONE (11:00)
[2019-05-12] MEDS ORDERED: CONTRAST GIVEN. MC PRN (11:00)
--- NOTE | 2019-05-12 11:07 | RAD ---
CT ABD PELV W/ IV CONTRST ONLY Indication: Chest pain, epigastric pain Technique: Postcontrast CT imaging was performed of the abdomen pelvis, multiplanar reconstruction images submitted. No oral contrast was given. One or more of the following individualized dose reduction techniques were utilized for this examination: 1. Automated exposure control 2. Adjustment of the mA and/or kV according to patient size 3. Use of iterative reconstruction technique. Comparison: May 10, 2015 Findings: There is no abnormality of the limited visualized lung bases. There is probable hepatic steatosis. Gallbladder is present without obvious intraluminal abnormality by CT. There is no adrenal nodularity. No new focal abnormality is identified of the liver, pancreas, or spleen. Both kidneys enhance, no hydronephrosis. There is again some mild hazy density of the left mesenteric fat and also some scattered small mesenteric nodes. Accurate evaluation of bowel is somewhat limited without oral contrast. Bowel is not significantly dilated. There is no new free fluid or free air. Normal caliber appendix is visualized without adjacent inflammatory change. There is left hip arthroplasty with associated artifact. There is multilevel lumbar facet degenerative change. IMPRESSION: 1. No acute abnormality is identified. There is similar degree of nonspecific hazy density of the left mesenteric fat with interspersed small nodes. There is probable hepatic steatosis. Electronically signed by: Cain Agrawal MD (05/12/2019 11:04 AM) [facility]
[2019-05-12 11:15] LABS: % BANDS 2 % (0-9); % EOS 2 % (0-5); % LYMPHS 22 % (24-48); % MONOS 3 % (0-10); % SEGS 71 % (35-66); PLT ESTIMATE ADEQUATE (ADEQUATE)
[2019-05-12] MEDS ORDERED: HYOSCYAMINE 0.125 MG TAB.RAPDIS PO ONE (11:45)
[2019-05-12 12:23] LABS: BILIRUBIN,URINE NEGATIVE (NEG); CLARITY,URINE CLEAR; COLOR,URINE YELLOW; NITRITE,URINE NEGATIVE (NEG); PROTEIN,URINE NEGATIVE (NEG-TRACE); UROBILINOGEN,URINE 0.2 mg/dL (0.2 mg/dL)
[2019-05-12 12:28] LABS: BACTERIA,URINE 0 /HPF (0-FEW); RBC,URINE RARE /HPF (0-2); SQUAMOUS EPITHELIAL CELL,UR OCC /LPF; WBC,URINE RARE /HPF (0-4)
[2019-05-12] MEDS ORDERED: HYOS0.1264 PO (13:56)
[2019-05-12 14:00] VITALS: BP 168/88
--- NOTE | 2019-05-13 16:45 | EKG ---
[facility] [address] [place] [address] Test Date: 2019-05-12 Test Time: 09:46:30 Pat Name: FABRICE LANCE Department: Room: Gender: Mail Room Clerk: : 1960 Requested By: SUSI JAFFE Order Number: [id number] Reading MD: Measurements Intervals [place] Rate: 70 P: 31 TN: 122 QRS: -34 QRSD: 82 T: 133 QT: 490 QTc: 538 Interpretive Statements SINUS RHYTHM ABNORMAL LEFT AXIS DEVIATION S1,S2,S3 PATTERN LEFT ANTERIOR FASCICULAR BLOCK CONSIDER LEFT VENTRICULAR HYPERTROPHY T ABNORMALITY IN ANTERIOR LEADS LATERAL LEADS PROLONGED QT NON SPECIFIC ST DEPRESSION ABNORMAL ECG No previous ECG available for comparison
== END 2019-05-12 14:06 | disposition home or self-care (01) ==
LOC: ER 09:37
DX: R10.13 Epigastric pain (principal); R07.89 Other chest pain; E11.9 Type 2 diabetes mellitus without complications; E78.00 Pure hypercholesterolemia, unspecified; G89.29 Other chronic pain; D49.6 Neoplasm of unspecified behavior of brain; Z86.011 Personal history of benign neoplasm of the brain; Z90.89 Acquired absence of other organs; Z98.890 Other specified postprocedural states
CPT/HCPCS: 36415; 71045; 74177; 80053; 81001; 82150; 83605; 83690; 84443; 84484; 85007; 85025; 85610; 93005; 99285; J7030; Q9967

== ENCOUNTER 2021-07-13 21:17 | Inpatient (IN) | payer BC ==
[~2021-07-13] VITALS: Ht 182.9 cm; Wt 117.9 kg
[~2021-07-13 21:17] MED LIST changes: +HYDR5TAB11 PO; -HYDR5TAB3 PO; +HYOS0.1264 PO
[2021-07-14] VITALS (7 sets, daily range): BP systolic 122–156; BP diastolic 79–87
[2021-07-14 00:33] LABS: BASO # 0.1 x10^3/uL (0.0-0.2); BASO % 1 % (0-3); EOS # 0.2 x10^3/uL (0.0-0.7); EOS % 2 % (0-3); HEMOGLOBIN 14.4 g/dL (13.0-17.5); LYMPH # 3.5 x10^3/uL (1.0-4.8); LYMPH % 40 % (24-48); MEAN CORPUSCULAR HEMOGLOBIN 29 pg (25-35); MEAN CORPUSCULAR HGB CONC 34 g/dL (31-37); MEAN CORPUSCULAR VOLUME 85 fL (79-100); MONO # 0.6 x10^3/uL (0.0-1.1); MONO % 7 % (0-9); NEUT # 4.3 x10^3/uL (1.8-7.7); NEUT % 49 % (31-73); PLATELET COUNT 252 x10^3/uL (140-400); RED BLOOD COUNT 4.94 x10^6/uL (4.30-5.70); RED CELL DISTRIBUTION WIDTH 14.2 % (11.5-14.5); WHITE BLOOD COUNT 8.6 x10^3/uL (4.0-11.0)
[2021-07-14 00:43] LABS: PROTHROMBIN TIME PATIENT 12.4 SEC (11.7-14.0)
[2021-07-14 00:45] LABS: CALCIUM 9.4 mg/dL (8.5-10.1); CREATININE 1.1 mg/dL (0.7-1.3); GFR 68.5
[2021-07-14] MEDS ORDERED: CONTRAST GIVEN. MC PRN (00:45)
[2021-07-14 00:48] LABS: ALBUMIN 3.8 g/dL (3.4-5.0); ALBUMIN/GLOBULIN RATIO 0.9 (1.0-1.7); TOTAL BILIRUBIN 0.4 mg/dL (0.2-1.0)
[2021-07-14] MEDS ORDERED: IOHEXOL 300 MG/ML 100ML VIAL. IV ONE (01:00)
[2021-07-14] MEDS ORDERED: IV NORMAL SALINE 500ML BAG 500 ML IV ONE (01:00)
--- NOTE | 2021-07-14 01:12 | RAD ---
EXAMINATION: CT HEAD/BRAIN WO CLINICAL HISTORY: Dysarthria, ataxia x1 day. TECHNIQUE: Serial axial images without IV contrast were obtained from the vertex to the foramen magnu m. CT Dose Reduction Employed: One or more of the following individualized dose reduction techniques wer e utilized for this examination: 1. Automated exposure control 2. Adjustment of the mA and/or kV ac cording to patient size 3. Use of iterative reconstruction technique. COMPARISON: None FINDINGS: Acute Change: No evidence of an acute infarct or other acute parenchymal process. Hemorrhage: No evidence of acute intracranial hemorrhage. Mass Lesion/Mass Effect: No evidence of intracranial mass or extraaxial fluid collection. No signific ant mass effect. Chronic Change: Postoperative changes related to right frontal craniotomy. Scattered patchy foci of h ypoattenuation in the supratentorial white matter, nonspecific but likely represents minimal microvas cular ischemia. Atherosclerotic calcification of the intracranial portion of the bilateral internal c arotid arteries. Parenchyma: Parenchyma otherwise within normal limits for age. Ventricles: Ventricles within normal limits for age. Paranasal Sinuses and Skull Base: Visualized paranasal sinuses clear. Visualized skull base and soft tissues unremarkable. IMPRESSION: No evidence of acute intracranial abnormality. Electronically signed by: Tim Braxton DO (07/14/2021 1:09 AM) [facility]
--- NOTE | 2021-07-14 01:20 | RAD ---
EXAMINATION: XR CHEST 1V CLINICAL HISTORY: Dysarthria, ataxia. EXAM DATE/TIME: 07/14/2021 12:56 AM COMPARISON: 05/12/2019 FINDINGS: Lines, Tubes, and Devices: None. Cardiomediastinal Silhouette: Within normal limits. Lungs and Pleura: No evidence of focal airspace consolidation or pleural effusion. Pulmonary vasculat ure unremarkable. Bones and Soft Tissues: Degenerative changes in the thoracic spine. IMPRESSION: No evidence of acute cardiopulmonary abnormality or significant interval change. Electronically signed by: Tim Braxton DO (07/14/2021 1:18 AM) [facility]
--- NOTE | 2021-07-14 01:27 | RAD ---
EXAMINATION: CTA HEAD AND NECK W/WO CONTRAST CLINICAL HISTORY: Dysarthria, ataxia. TECHNIQUE: Spiral high resolution axial images were obtained through the head, neck and superior medi astinum following bolus administration of intravenous contrast for CT angiography. 3D maximum intensi ty projection images also performed. CT Dose Reduction Employed: One or more of the following individualized dose reduction techniques wer e utilized for this examination: 1. Automated exposure control 2. Adjustment of the mA and/or kV ac cording to patient size 3. Use of iterative reconstruction technique. COMPARISON: CT head same day FINDINGS: BRAIN: No evidence of acute ischemic stroke or intracranial hemorrhage. NECK: Soft Tissues: Unremarkable. Spine: Multilevel degenerative changes in the cervical spine. Lung Apices: Unremarkable. CT ARTERIOGRAM: Extracranial Circulation: Aortic Arch: Normal branching pattern from the aortic arch. No significant stenosis in the proximal b rachiocephalic vessels. Carotid Stenosis: Right Common: No significant stenosis. Right Internal Carotid Plaque: Mild calcified plaque in the carotid bulb. Right Internal Carotid Stenosis (% by NASCET Criteria): No significant stenosis. Left Common: No significant stenosis. Left Internal Carotid Plaque: Moderate mixed plaque in the carotid bulb. Left Internal Carotid Stenosis (% by NASCET Criteria): No significant stenosis. Cervical Vertebral Arteries: Patency: Bilateral Dominance: Codominant Intracranial Circulation: Anterior Circulation: No evidence of large vessel occlusion. Mild calcified plaque in the intracrania l portion of the bilateral internal carotid arteries. Vertebrobasilar Circulation: No evidence of large vessel occlusion. IMPRESSION: No evidence of large vessel occlusion or significant carotid arterial stenosis. Electronically signed by: Tim Braxton DO (07/14/2021 1:25 AM) [facility]
--- NOTE | 2021-07-14 02:41 | EKG ---
[facility] [address] [place] [address] Test Date: 2021-07-13 Test Time: 21:41:05 Pat Name: FABRICE LANCE Department: Room: 524 1 Gender: M Cpa Tax: JOANA : 1960 Requested By: JOSE MIGUEL PICHADRO Order Number: [id number] Reading MD: Lauri Ellis Measurements Intervals [place] Rate: 82 P: 32 WI: 162 QRS: 92 QRSD: 80 T: 23 QT: 374 QTc: 440 Interpretive Statements SINUS RHYTHM ATRIAL PREMATURE COMPLEX(ES) Electronically Signed On 07-18-2021 21:47:08 CDT by Lauri Ellis
--- NOTE | 2021-07-14 03:31 | PHYS DOC ---
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 Also has a history of thyroidectomy on thyroid replacement therapy. Was previously on warfarin (unclear indication; patient does not remember) but is not currently on a blood thinner. Mr. Kelley presents for evaluation of slurred speech and difficulty walking with onset on awakening from sleep this morning at about 10:30AM, about 12 hours prior to arrival. Last known normal the night before he went to bed. States he noticed he was bumping into things and was having difficulty ambulating stably, which is not normal for him. Noticed his speech was different than usual and somewhat slurred, also not normal for him. Has never had these symptoms before. Endorses compliance with all of his home medications. Denies fevers, nausea or vomiting, headache, focal or lateralizing weakness, numbness or tingling (states both his legs feel equally weak but is able to ambulate on them), neck stiffness/pain/meningismus, vision changes, upper respiratory congestion/rhinorrhea, cough, sore throat, shortness of breath or chest pain of any kind, abdominal pain of any kind, flank pain, midline back pain of any kind, dysuria, hematuria, polyuria or oliguria, changes in bowel habits, loss of bowel or bladder control, saddle anesthesia, new lower extremity numbness or tingling, new urinary retention, use of intravenous illegal drugs. Patient is alert and oriented x4, pleasantly and appropriately interactive and in no acute distress with appropriate vital signs and blood glucose upon initial evaluation here in the emergency department. He can ambulate but has a wide-ba sed and somewhat unsteady gait, not normal for him. Review of Systems Review of Systems A 12 point review of systems was completed and was negative except where noted in HPI above. Current Medications Current Medications Current Medications Medications (Trade) Dose Ordered Sig/Mark Start Time Stop Time Status Last Admin Dose Admin Info (CONTRAST GIVEN -- Rx MONITORING) 1 each PRN DAILY PRN 07/14/21 00:45 07/16/21 00:44 Iohexol (Omnipaque 300 Mg/ml) 75 ml 1X ONCE 07/14/21 01:00 07/14/21 01:01 DC 07/14/21 01:14 75 ML Sodium Chloride 500 ml @ 500 mls/hr 1X ONCE 07/14/21 01:00 07/14/21 01:59 DC 07/14/21 00:50 500 MLS/HR Allergies Allergies Allergies Coded Allergies Type Severity Reaction Last Updated Verified No Known Drug Allergies 08/14/14 No Physical Exam Physical Exam Older male appearing nontoxic and in no acute distress. Head is normocephalic and atraumatic. Neck is supple and nontender. Oropharynx is moist. Lungs are clear to auscultation at all stations. There is a normal S1 and S2 without rubs or gallops and capillary refill is appropriate, less than 2 seconds globally. Abdomen is soft, nontender and nondistended. Skin is warm and dry without cyanosis, clubbing or edema. Psychiatrically, the patient demonstrates appropriate mood and affect and is alert. Evaluation of the extremities reveals BUEs and BLEs neurovascularly intact distally with strength out of 5, sensation intact light touch in all nerve distributions, radial, DP a nd PT pulses 2+ and equal bilaterally, capillary refill less than 2 seconds, hands and feet warm and well-perfused. No dependent peripheral edema distally. No calf tenderness swelling bilaterally. Homans test is negative bilaterally. Neurologically, patient has mild dysarthria and a wide-based, unsteady, ataxic gait. Otherwise, cranial nerves II through XII are intact. Language fluency is normal. There is no dysmetria with cdyyfy-uv-obio or tikq-kj-fquj bilaterally. Strength is 5 out of 5 at all joints of bilateral upper and lower extremities. Sensation is intact light touch in bilateral upper and lower extremities. Patient is alert and oriented x4. NIHSS1 for dysarthria only. Current Patient Data Vital Signs Vital Signs Date Time Temp Pulse Resp B/P (MAP) Pulse Ox O2 Delivery O2 Flow Rate FiO2 07/14/21 01:15 72 20 147/87 (107) 97 Room Air 07/13/21 21:30 97.9 97.9 Lab Values Laboratory Tests Test 07/14/21 00:07 White Blood Count 8.6 x10^3/uL (4.0-11.0) Red Blood Count 4.94 x10^6/uL (4.30-5.70) Hemoglobin 14.4 g/dL (13.0-17.5) Hematocrit 42.0 % (39.0-53.0) Mean Corpuscular Volume 85 fL (79-100) Mean Corpuscular Hemoglobin 29 pg (25-35) Mean Corpuscular Hemoglobin Concent 34 g/dL (31-37) Red Cell Distribution Width 14.2 % (11.5-14.5) Platelet Count 252 x10^3/uL (140-400) Neutrophils (%) (Auto) 49 % (31-73) Lymphocytes (%) (Auto) 40 % (24-48) Monocytes (%) (Auto) 7 % (0-9) Eosinophils (%) (Auto) 2 % (0-3) Basophils (%) (Auto) 1 % (0-3) Neutrophils # (Auto) 4.3 x10^3/uL (1.8-7.7) Lymphocytes # (Auto) 3.5 x10^3/uL (1.0-4.8) Monocytes # (Auto) 0.6 x10^3/uL (0.0-1.1) Eosinophils # (Auto) 0.2 x10^3/uL (0.0-0.7) Basophils # (Auto) 0.1 x10^3/uL (0.0-0.2) Prothrombin Time 12.4 SEC (11.7-14.0) Prothrombin Time INR 1.0 (0.8-1.1) Activated Partial Thromboplast Time 28 SEC (24-38) Sodium Level 144 mmol/L (136-145) Potassium Level 4.0 mmol/L (3.5-5.1) Chloride Level 106 mmol/L (98-107) Carbon Dioxide Level 24 mmol/L (21-32) Anion Gap 14 (6-14) Blood Urea Nitrogen 22 mg/dL (8-26) Creatinine 1.1 mg/dL (0.7-1.3) Estimated GFR (Cockcroft-Gault) 68.5 BUN/Creatinine Ratio 20 (6-20) Glucose Level 159 mg/dL (70-99) H Calcium Level 9.4 mg/dL (8.5-10.1) Total Bilirubin 0.4 mg/dL (0.2-1.0) Aspartate Amino Transferase (AST) 33 U/L (15-37) Alanine Aminotransferase (ALT) 65 U/L (16-63) H Alkaline Phosphatase 83 U/L (46-116) Troponin I High Sensitivity 7 ng/L (4-75) Total Protein 8.0 g/dL (6.4-8.2) Albumin 3.8 g/dL (3.4-5.0) Albumin/Globulin Ratio 0.9 (1.0-1.7) L Laboratory Tests 07/14/21 00:07 Laboratory Tests 07/14/21 00:07 EKG EKG Sinus rhythm, rate 82, no acute ST elevation or depression, occasional premature atrial contractions, KS 162, QRS 80, QTc 440, EP interpretation. Nonischemic tracing, intervals appropriate. Radiology/Procedures Radiology/Procedures EXAMINATION: CTA HEAD AND NECK W/WO CONTRAST CLINICAL HISTORY: Dysarthria, ataxia. TECHNIQUE: Spiral high resolution axial images were obtained through the head, neck and superior mediastinum following bolus administration of intravenous contrast for CT angiography. 3D maximum intensity projection images also performed. CT Dose Reduction Employed: One or more of the following individualized dose reduction techniques were utilized for this examination: 1. Automated exposure control 2. Adjustment of the mA and/or kV according to patient size 3. Use of iterative reconstruction technique. COMPARISON: CT head same day FINDINGS: BRAIN: No evidence of acute ischemic stroke or intracranial hemorrhage. NECK: Soft Tissues: Unremarkable. Spine: Multilevel degenerative changes in the cervical spine. Lung Apices: Unremarkable. CT ARTERIOGRAM: Extracranial Circulation: Aortic Arch: Normal branching pattern from the aortic arch. No significant swati nosis in the proximal brachiocephalic vessels. Carotid Stenosis: Right Common: No significant stenosis. Right Internal Carotid Plaque: Mild calcified plaque in the carotid bulb. Right Internal Carotid Stenosis (% by NASCET Criteria): No significant stenosis. Left Common: No significant stenosis. Left Internal Carotid Plaque: Moderate mixed plaque in the carotid bulb. Left Internal Carotid Stenosis (% by NASCET Criteria): No significant stenosis. Cervical Vertebral Arteries: Patency: Bilateral Dominance: Codominant Intracranial Circulation: Anterior Circulation: No evidence of large vessel occlusion. Mild calcified plaque in the intracranial portion of the bilateral internal carotid arteries. Vertebrobasilar Circulation: No evidence of large vessel occlusion. IMPRESSION: No evidence of large vessel occlusion or significant carotid arterial stenosis. Electronically signed by: Tim Loza DO (07/14/2021 1:25 AM) [facility] DICTATED and SIGNED BY: TIM LOZA DO DATE: 07/14/21 011 EXAMINATION: CT HEAD/BRAIN WO CLINICAL HISTORY: Dysarthria, ataxia x1 day. TECHNIQUE: Serial axial images without IV contrast were obtained from the vertex to the foramen magnum. CT Dose Reduction Employed: One or more of the following individualized dose reduction techniques were utilized for this examination: 1. Automated exposure control 2. Adjustment of the mA and/or kV according to patient size 3. Use of iterative reconstruction technique. COMPARISON: None FINDINGS: Acute Change: No evidence of an acute infarct or other acute parenchymal process. Hemorrhage: No evidence of acute intracranial hemorrhage. Mass Lesion/Mass Effect: No evidence of intracranial mass or extraaxial fluid collection. No significant mass effect. Chronic Change: Postoperative changes related to right frontal craniotomy. Scattered patchy foci of hypoattenuation in the supratentorial white matter, nonspecific but likely represents minimal microvascular ischemia. Atherosclerotic calcification of the intracranial portion of the bilateral internal carotid arteries. Parenchyma: Parenchyma otherwise within normal limits for age. Ventricles: Ventricles within normal limits for age. Paranasal Sinuses and Skull Base: Visualized paranasal sinuses clear. Visualized skull base and soft tissues unremarkable. IMPRESSION: No evidence of acute intracranial abnormality. Electronically signed by: Tim Loza DO (07/14/2021 1:09 AM) [facility] DICTATED and SIGNED BY: TIM LOZA DO DATE: 07/14/21 010 EXAMINATION: XR CHEST 1V CLINICAL HISTORY: Dysarthria, ataxia. EXAM DATE/TIME: 07/14/2021 12:56 AM COMPARISON: 05/12/2019 FINDINGS: Lines, Tubes, and Devices: None. Cardiomediastinal Silhouette: Within normal limits. Lungs and Pleura: No evidence of focal airspace consolidation or pleural effusion. Pulmonary vasculature unremarkable. Bones and Soft Tissues: Degenerative changes in the thoracic spine. IMPRESSION: No evidence of acute cardiopulmonary abnormality or significant interval change. Electronically signed by: Tim Loza DO (07/14/2021 1:18 AM) [facility] DICTATED and SIGNED BY: TIM LOZA DO DATE: 07/14/21 0117 Course & Med Decision Making Course & Med Decision Making Large work-up as above is without evidence of acute process. Head CT with no bl eed. CT angiography of the head and neck without evidence of LVO or other acute process. Mr. Kelley is well outside any window for alteplase/TPA administration if indeed his presenting dysarthria and gait disturbance prove to be secondary to ischemic stroke. Will bring in for further care, to include neurology consultation and likely MRI. Graciously accepted for admission by Dr. Kim. Critical care time was 39 minutes today. Dragon Disclaimer Dragon Disclaimer This electronic medical record was generated, in whole or in part, using a voice recognition dictation system. Departure Departure Impression: Primary Impression: Dysarthria Additional Impression: Gait disturbance Disposition: ADMITTED INPATIENT Condition: GUARDED Referrals: JAVY BUSTOS MD (PCP) Problem Qualifiers JOSE MIGUEL PICHARDO MD Jul 14, 2021 03:31
[2021-07-14] MEDS ORDERED: ACETAMINOPHEN 325 MG TABLET. PO PRN ×2 (03:45→08:45)
[2021-07-14] MEDS ORDERED: ONDANSETRON PF 4 MG/2 ML VIAL. IVP PRN (03:45)
[2021-07-14] MEDS: CLOPIDOGREL BISULFATE 75 MG TABLET PO SCH (08:40)
[2021-07-14] MEDS: ASPIRIN CHEWABLE 81 MG TABLET. PO SCH (08:40)
[2021-07-14] MEDS ORDERED: ASPIRIN RECTAL 300 MG SUPP. PR PRN (08:45)
[2021-07-14 09:04] LABS: CHOLESTEROL/HDL RATIO 5.4
--- NOTE | 2021-07-14 09:51 | PDOC2 ---
NEUROLOGY CONSULT Date of Service DOS: DATE: 07/14/21 TIME: 09:44 Reason for Consult Reason for Consult: Stroke symptoms Referring Physician Referring Physician: Dr. Wells Source Source: Chart review, Patient History of Present Illness History of Present Illness The patient is a 61-year-old right-handed male who noted onset of dysarthria and difficulty walking yesterday morning. He works the veterinary hospital shift lead so he just went back to bed and then woke up late yesterday afternoon and try to go to work but realized he could not. He presented to the emergency department at 21:30. He has continued to have dysarthria and ataxia. He denies any prior history of stroke, seizure, or head injury. He was on anticoagulation for a heart condition, he does not know any further details and does not recognize "atrial fibrillation." He has been off this for several years. He has a history of pituitary adenoma status-post craniotomy and resection. Past Medical History Cardiovascular: HTN, Hyperlipidemia GI: Constipation Musculoskeletal: Osteoarthritis ENT: Other (Wears glasses, decreased hearing in the right ear) Endocrine: Diabetes, Hypothyroidism, Other (Postoperative pituitary insufficiency) Dermatology: Other (Onychomycosis) Past Surgical History Past Surgical History: Other (Pituitary tumor resection, thyroidectomy) Family History Family History: Cancer, Other (COPD) Social History Social History Single, lives with son, works at the [employer] at the [employer] shift lead, rare alcohol, no tobacco Current Medications Current Medications Current Medications Sodium Chloride 500 ml @ 500 mls/hr 1X ONCE IV Last administered on 07/14/21at 00:50; Start 07/14/21 at 01:00; Stop 07/14/21 at 01:59; Status DC Iohexol (Omnipaque 300 Mg/ml) 75 ml 1X ONCE IV Last administered on 07/14/21at 01:14; Start 07/14/21 at 01:00; Stop 07/14/21 at 01:01; Status DC Info (CONTRAST GIVEN -- Rx MONITORING) 1 each PRN DAILY PRN MC SEE COMMENTS; Start 07/14/21 at 00:45; Stop 07/16/21 at 00:44 Ondansetron HCl (Zofran) 4 mg PRN Q8HRS PRN IVP NAUSEA/VOMITING 1ST CHOICE; Start 07/14/21 at 03:45; Stop 07/15/21 at 03:44 Acetaminophen (Tylenol) 650 mg PRN Q4HRS PRN PO FEVER > 100.3'F; Start 07/14/21 at 03:45; Stop 07/15/21 at 03:44 Atorvastatin Calcium (Lipitor) 80 mg QHS PO ; Start 07/14/21 at 21:00 Acetaminophen (Tylenol) 650 mg PRN Q6HRS PRN PO MILD PAIN / TEMP > 100.3'F; Start 07/14/21 at 08:45 Aspirin (Aspirin Chewable) 81 mg DAILYWBKFT PO ; Start 07/14/21 at 09:00 Aspirin (Aspirin Rectal Supp) 300 mg PRN DAILY PRN [place] IF UNABLE TO TAKE PO; Start 07/14/21 at 08:45 Clopidogrel Bisulfate (Plavix) 75 mg DAILYWBKFT PO ; Start 07/14/21 at 09:00 Active Scripts Active Levsin (Hyoscyamine Sulfate) 0.125 Mg Tablet 0.125 Mg PO Q4HRS PRN Reported Tramadol Hcl 50 Mg Tablet 50 Mg PO Q4HRS PRN Ferrous Sulfate 325 Mg Tablet 1 Tab PO BID Coumadin (Warfarin Sodium) 6 Mg Tablet 1 Tab PO DAILY Trulicity (Dulaglutide) 1.5 Mg/0.5 Ml Pen.injctr 1.5 Mg SQ WEEKLY Hydrocortisone 5 Mg Tablet 2 Tab PO DAILYWSUP Hydrocortisone 5 Mg Tablet 3 Tab PO DAILY08 Acetaminophen 500 Mg Tablet 500 Mg PO PRN TID PRN Vitamin D (Cholecalciferol (Vitamin D3)) 2,000 Unit Capsule 2,000 Unit PO DAILY Levothyroxine Sodium 175 Mcg Tablet 1 Tab PO DAILY Metformin Hcl 500 Mg Tablet 1 Tab PO BID Allergies Allergies: Coded Allergies: No Known Drug Allergies (Unverified , 08/14/14) ROS Review of System Negative for fever, chills, weight loss, shortness of breath, chest pain, indigestion, hematochezia, melena, and dysuria. Full 14-point review of systems is negative. Physical Exam Physical Examination General: Well-developed, well-nourished, white male, in no acute distress HEENT: Normocephalic andatraumatic. Temporal arteriespulsatile and nontender. Neck: Supple without bruit, no meningismus Musculoskeletal: Stability:see neurologic. Gait exam:see neurologic. Tone:see neurologic.Strength:see neurologic. Neurological: Mental Status:intact, orientation, memory, attention span/concentration, language, fund of knowledge normal. Dysarthric speech. Cranial Nerves:Pupils equal and reactive to light, extraocular movements areintact, visual manrique are full to confrontation. Facial sensation is normal. There is no facial asymmetry. Vestibulo-ocular reflex is intact. Palate elevates and tongue protrudes in midline. All other cranial related problems are negative except as mentioned before.Reflexes:2+ and symmetric with flexor plantar responses. Motor:5/5 strength with normal tone and bulk. Coordination:Slight right dysmetria. Rapid alternating movements and fine finger movements are intact. Gait: Ataxic. Sensory:Stocking glove. Vitals VITALS Vital Signs Date Time Temp Pulse Resp B/P (MAP) Pulse Ox O2 Delivery O2 Flow Rate FiO2 07/14/21 08:00 Room Air 07/14/21 07:00 97.5 77 18 123/84 (97) 96 97.5 Labs Labs Laboratory Tests Test 07/14/21 00:07 White Blood Count 8.6 x10^3/uL (4.0-11.0) Red Blood Count 4.94 x10^6/uL (4.30-5.70) Hemoglobin 14.4 g/dL (13.0-17.5) Hematocrit 42.0 % (39.0-53.0) Mean Corpuscular Volume 85 fL (79-100) Mean Corpuscular Hemoglobin 29 pg (25-35) Mean Corpuscular Hemoglobin Concent 34 g/dL (31-37) Red Cell Distribution Width 14.2 % (11.5-14.5) Platelet Count 252 x10^3/uL (140-400) Neutrophils (%) (Auto) 49 % (31-73) Lymphocytes (%) (Auto) 40 % (24-48) Monocytes (%) (Auto) 7 % (0-9) Eosinophils (%) (Auto) 2 % (0-3) Basophils (%) (Auto) 1 % (0-3) Neutrophils # (Auto) 4.3 x10^3/uL (1.8-7.7) Lymphocytes # (Auto) 3.5 x10^3/uL (1.0-4.8) Monocytes # (Auto) 0.6 x10^3/uL (0.0-1.1) Eosinophils # (Auto) 0.2 x10^3/uL (0.0-0.7) Basophils # (Auto) 0.1 x10^3/uL (0.0-0.2) Prothrombin Time 12.4 SEC (11.7-14.0) Prothromb Time International Ratio 1.0 (0.8-1.1) Activated Partial Thromboplast Time 28 SEC (24-38) Sodium Level 144 mmol/L (136-145) Potassium Level 4.0 mmol/L (3.5-5.1) Chloride Level 106 mmol/L (98-107) Carbon Dioxide Level 24 mmol/L (21-32) Anion Gap 14 (6-14) Blood Urea Nitrogen 22 mg/dL (8-26) Creatinine 1.1 mg/dL (0.7-1.3) Estimated GFR (Cockcroft-Gault) 68.5 BUN/Creatinine Ratio 20 (6-20) Glucose Level 159 mg/dL (70-99) Calcium Level 9.4 mg/dL (8.5-10.1) Total Bilirubin 0.4 mg/dL (0.2-1.0) Aspartate Amino Transf (AST/SGOT) 33 U/L (15-37) Alanine Aminotransferase (ALT/SGPT) 65 U/L (16-63) Alkaline Phosphatase 83 U/L (46-116) Troponin I High Sensitivity 7 ng/L (4-75) Total Protein 8.0 g/dL (6.4-8.2) Albumin 3.8 g/dL (3.4-5.0) Albumin/Globulin Ratio 0.9 (1.0-1.7) Triglycerides Level 290 mg/dL (0-150) Cholesterol Level 168 mg/dL (0-200) LDL Cholesterol, Calculated 79 mg/dL (0-100) VLDL Cholesterol, Calculated 58 mg/dL (0-40) Non-HDL Cholesterol Calculated 137 mg/dL (0-129) HDL Cholesterol 31 mg/dL (40-60) Cholesterol/HDL Ratio 5.4 Thyroid Stimulating Hormone (TSH) 0.630 uIU/mL (0.358-3.74) Laboratory Tests Test 07/14/21 00:07 White Blood Count 8.6 x10^3/uL (4.0-11.0) Red Blood Count 4.94 x10^6/uL (4.30-5.70) Hemoglobin 14.4 g/dL (13.0-17.5) Hematocrit 42.0 % (39.0-53.0) Mean Corpuscular Volume 85 fL (79-100) Mean Corpuscular Hemoglobin 29 pg (25-35) Mean Corpuscular Hemoglobin Concent 34 g/dL (31-37) Red Cell Distribution Width 14.2 % (11.5-14.5) Platelet Count 252 x10^3/uL (140-400) Neutrophils (%) (Auto) 49 % (31-73) Lymphocytes (%) (Auto) 40 % (24-48) Monocytes (%) (Auto) 7 % (0-9) Eosinophils (%) (Auto) 2 % (0-3) Basophils (%) (Auto) 1 % (0-3) Neutrophils # (Auto) 4.3 x10^3/uL (1.8-7.7) Lymphocytes # (Auto) 3.5 x10^3/uL (1.0-4.8) Monocytes # (Auto) 0.6 x10^3/uL (0.0-1.1) Eosinophils # (Auto) 0.2 x10^3/uL (0.0-0.7) Basophils # (Auto) 0.1 x10^3/uL (0.0-0.2) Prothrombin Time 12.4 SEC (11.7-14.0) Prothromb Time International Ratio 1.0 (0.8-1.1) Activated Partial Thromboplast Time 28 SEC (24-38) Sodium Level 144 mmol/L (136-145) Potassium Level 4.0 mmol/L (3.5-5.1) Chloride Level 106 mmol/L (98-107) Carbon Dioxide Level 24 mmol/L (21-32) Anion Gap 14 (6-14) Blood Urea Nitrogen 22 mg/dL (8-26) Creatinine 1.1 mg/dL (0.7-1.3) Estimated GFR (Cockcroft-Gault) 68.5 BUN/Creatinine Ratio 20 (6-20) Glucose Level 159 mg/dL (70-99) Calcium Level 9.4 mg/dL (8.5-10.1) Total Bilirubin 0.4 mg/dL (0.2-1.0) Aspartate Amino Transf (AST/SGOT) 33 U/L (15-37) Alanine Aminotransferase (ALT/SGPT) 65 U/L (16-63) Alkaline Phosphatase 83 U/L (46-116) Troponin I High Sensitivity 7 ng/L (4-75) Total Protein 8.0 g/dL (6.4-8.2) Albumin 3.8 g/dL (3.4-5.0) Albumin/Globulin Ratio 0.9 (1.0-1.7) Triglycerides Level 290 mg/dL (0-150) Cholesterol Level 168 mg/dL (0-200) LDL Cholesterol, Calculated 79 mg/dL (0-100) VLDL Cholesterol, Calculated 58 mg/dL (0-40) Non-HDL Cholesterol Calculated 137 mg/dL (0-129) HDL Cholesterol 31 mg/dL (40-60) Cholesterol/HDL Ratio 5.4 Thyroid Stimulating Hormone (TSH) 0.630 uIU/mL (0.358-3.74) Images Images CT HEAD/BRAIN WO CLINICAL HISTORY: Dysarthria, ataxia x1 day. TECHNIQUE: Serial axial images without IV contrast were obtained from the vertex to the foramen magnum. CT Dose Reduction Employed: One or more of the following individualized dose reduction techniques were utilized for this examination: 1. Automated exposure control 2. Adjustment of the mA and/or kV according to patient size 3. Use of iterative reconstruction technique. COMPARISON: None FINDINGS: Acute Change: No evidence of an acute infarct or other acute parenchymal process. Hemorrhage: No evidence of acute intracranial hemorrhage. Mass Lesion/Mass Effect: No evidence of intracranial mass or extraaxial fluid collection. No significant mass effect. Chronic Change: Postoperative changes related to right frontal craniotomy. Scattered patchy foci of hypoattenuation in the supratentorial white matter, nonspecific but likely represents minimal microvascular ischemia. Atherosclerotic calcification of the intracranial portion of the bilateral internal carotid arteries. Parenchyma: Parenchyma otherwise within normal limits for age. Ventricles: Ventricles within normal limits for age. Paranasal Sinuses and Skull Base: Visualized paranasal sinuses clear. Visualized skull base and soft tissues unremarkable. IMPRESSION: No evidence of acute intracranial abnormality. CTA HEAD AND NECK W/WO CONTRAST CLINICAL HISTORY: Dysarthria, ataxia. TECHNIQUE: Spiral high resolution axial images were obtained through the head, neck and superior mediastinum following bolus administration of intravenous contrast for CT angiography. 3D maximum intensity projection images also performed. CT Dose Reduction Employed: One or more of the following individualized dose reduction techniques were utilized for this examination: 1. Automated exposure control 2. Adjustment of the mA and/or kV according to patient size 3. Use of iterative reconstruction technique. COMPARISON: CT head same day FINDINGS: BRAIN: No evidence of acute ischemic stroke or intracranial hemorrhage. NECK: Soft Tissues: Unremarkable. Spine: Multilevel degenerative changes in the cervical spine. Lung Apices: Unremarkable. CT ARTERIOGRAM: Extracranial Circulation: Aortic Arch: Normal branching pattern from the aortic arch. No significant stenosis in the proximal brachiocephalic vessels. Carotid Stenosis: Right Common: No significant stenosis. Right Internal Carotid Plaque: Mild calcified plaque in the carotid bulb. Right Internal Carotid Stenosis (% by NASCET Criteria): No significant stenosis. Left Common: No significant stenosis. Left Internal Carotid Plaque: Moderate mixed plaque in the carotid bulb. Left Internal Carotid Stenosis (% by NASCET Criteria): No significant stenosis. Cervical Vertebral Arteries: Patency: Bilateral Dominance: Codominant Intracranial Circulation: Anterior Circulation: No evidence of large vessel occlusion. Mild calcified plaque in the intracranial portion of the bilateral internal carotid arteries. Vertebrobasilar Circulation: No evidence of large vessel occlusion. IMPRESSION: No evidence of large vessel occlusion or significant carotid arterial stenosis. Assessment/Plan Assessment/Plan Impression: Clinically a right cerebellar infarct, also could be located in the internal capsule. He was not a candidate for alteplase, he presented far outside the window, and there is no evidence of large vessel occlusion. Diabetic neuropathy Hypertension, cardiac disease, diabetes, pituitary insufficiency status-post pituitary tumor resection via right frontal craniotomy Recommendations: Aspirin failure, add clopidogrel Swallow was not tested, n.p.o. until this is evaluated. Rehabilitation modalities MRI of the brain Echocardiogram Statin Pituitary hormone replacement per home medications Thank you for letting me help with the patient's care. JUAREZ GARCIA MD Jul 14, 2021 09:51
--- NOTE | 2021-07-14 11:08 | NUR ---
Bedside Swallow Evaluation completed. Please refer to full report in intervention section for additional information. Impressions: Pt currently in process of stroke work up. Swallow appears functional w/o overt s/s aspiration w/ trials of honey thick liquid, thin liquid, puree and solids. Pt appears at low risk of aspiration for a regular diet and thin liquids w/ general swallow precautions (sitting upright). Pt does present w/ min-mild lingual weakness and discoordination that is apparent in his dysarthric speech vs swallowing. Recommendations: Regular diet w/ thin liquids, general swallow precautions. ST f/u per POC.
--- NOTE | 2021-07-14 12:27 | PDOC1 ---
History and Physical Date of Service: DOS: DATE: 07/14/21 TIME: 12:27 Chief Complaint: Chief Complain: weakness History of Present Illness: HPI: 57-year-old male presented to the emergency room overnight due to 12- hour history of slurred speech and difficulty walking. Awoke yesterday morning with difficulty walking and speaking. Last known normal when he went to bed. Had a hard time getting around his house after this. Initially states he thought symptoms would resolve themselves. When they did not however after about 12 hours he presented to the emergency room overnight. CT imaging of the head pretty unremarkable in the emergency room. Given symptoms recommended admission for Neuro consult and possible MRI if they deem necessary. When I saw the patient he was pleasantly resting in bed. Does have a little bit of slurred speech still. Past Medical/Surgical History: PMH/PSH: Past Medical History: Diabetes-Type II, High Cholesterol Additional Past Medical Histor: chronic back pain, brain tumor that destroyed pituitary gland Past Surgical History: Hip Replacement Additional Past Surgical Histo: thyroid radiation, 2 craniotomy, pituitary removal, thyroidectomy Smoking Status: Never Smoker Alcohol Use: None Drug Use: None Allergies: Allergies: Coded Allergies: No Known Drug Allergies (Unverified , 08/14/14) Family History: Family History: Diabetes Current Medications: Current Medications Current Medications Sodium Chloride 500 ml @ 500 mls/hr 1X ONCE IV Last administered on 07/14/21at 00:50; Start 07/14/21 at 01:00; Stop 07/14/21 at 01:59; Status DC Iohexol (Omnipaque 300 Mg/ml) 75 ml 1X ONCE IV Last administered on 07/14/21at 01:14; Start 07/14/21 at 01:00; Stop 07/14/21 at 01:01; Status DC Info (CONTRAST GIVEN -- Rx MONITORING) 1 each PRN DAILY PRN MC SEE COMMENTS; Start 07/14/21 at 00:45; Stop 07/16/21 at 00:44 Ondansetron HCl (Zofran) 4 mg PRN Q8HRS PRN IVP NAUSEA/VOMITING 1ST CHOICE; Start 07/14/21 at 03:45; Stop 07/15/21 at 03:44 Acetaminophen (Tylenol) 650 mg PRN Q4HRS PRN PO FEVER > 100.3'F; Start 07/14/21 at 03:45; Stop 07/15/21 at 03:44 Atorvastatin Calcium (Lipitor) 80 mg QHS PO ; Start 07/14/21 at 21:00 Acetaminophen (Tylenol) 650 mg PRN Q6HRS PRN PO MILD PAIN / TEMP > 100.3'F; Start 07/14/21 at 08:45 Aspirin (Aspirin Chewable) 81 mg DAILYWBKFT PO ; Start 07/14/21 at 09:00 Aspirin (Aspirin Rectal Supp) 300 mg PRN DAILY PRN [place] IF UNABLE TO TAKE PO; Start 07/14/21 at 08:45 Clopidogrel Bisulfate (Plavix) 75 mg DAILYWBKFT PO ; Start 07/14/21 at 09:00 Active Scripts Active Levsin (Hyoscyamine Sulfate) 0.125 Mg Tablet 0.125 Mg PO Q4HRS PRN Reported Tramadol Hcl 50 Mg Tablet 50 Mg PO Q4HRS PRN Ferrous Sulfate 325 Mg Tablet 1 Tab PO BID Coumadin (Warfarin Sodium) 6 Mg Tablet 1 Tab PO DAILY Trulicity (Dulaglutide) 1.5 Mg/0.5 Ml Pen.injctr 1.5 Mg SQ WEEKLY Hydrocortisone 5 Mg Tablet 2 Tab PO DAILYWSUP Hydrocortisone 5 Mg Tablet 3 Tab PO DAILY08 Acetaminophen 500 Mg Tablet 500 Mg PO PRN TID PRN Vitamin D (Cholecalciferol (Vitamin D3)) 2,000 Unit Capsule 2,000 Unit PO DAILY Levothyroxine Sodium 175 Mcg Tablet 1 Tab PO DAILY Metformin Hcl 500 Mg Tablet 1 Tab PO BID ROS: Review of Systems Review of System REVIEW OF SYSTEMS: GENERAL: Denies weakness SKIN: No bruising, hair changes or rashes. EYES: No blurred, double or loss of vision. NOSE AND THROAT: No history of nosebleeds, hoarseness or sore throat. HEART: No history of palpitations, chest pain or shortness of breath on exertion. LUNGS: Denies cough, hemoptysis, wheezing or shortness of breath. GASTROINTESTINAL: Denies changes in appetite, nausea, vomiting, diarrhea or constipation. GENITOURINARY: No history of frequency, urgency, hesitancy or nocturia. NEUROLOGIC: Denies history of numbness, tingling, or tremor. PSYCHIATRIC: No history of panic, anxiety or depression. ENDOCRINE: No history of heat or cold intolerance, polyuria or polydipsia. EXTREMITIES: Denies joint pain, pain on walking or stiffness. Physical Exam: Vital Signs: Vital Signs Date Time Temp Pulse Resp B/P (MAP) Pulse Ox O2 Delivery O2 Flow Rate FiO2 07/14/21 11:00 97.8 79 18 143/83 (103) 97 Room Air 97.8 Physcial Exam: GEN: No apparent distress. Alert and oriented HEENT: Normal cephalic, atraumatic, external auditory canals are patent EYES: Extraocular muscles are intact, pupil are equally round and reactive to light and accommodation MUSCULOSKELETAL: Well developed , well nourished, good range of motion ENDOCRINE: No thyromegaly was palpated LYMPHATICS: No cervical chain or axillary nodes were noted HEMATOPOIETIC: No bruising NECK: Supple, no JVD, no thyromegaly was noted LUNGS: Clear to auscultation in all lung manrique without rhonchi or wheezing HEART: RRR, S!, S2 present. Peripheral pulses intact, no obvious murmurs noted ABDOMEN: Soft, nontender. Positive bowel sounds, no organomegaly, normal bowel sounds EXTREMITIES: Without clubbing, cyanosis, or edema. Pedal pulses intact. Negative Homans sign NEUROLOGIC: Slurred speech however otherwise grossly normal PSYCHIATRIC: Normal affect, normal mood. Stable SKIN: No ulcerations or rashes, good skin turgor, no jaundice VASCULAR: Good capillary refill, neurovascular bundle appears to be intact Labs: Labs: Laboratory Tests Test 07/14/21 00:07 07/14/21 10:58 White Blood Count 8.6 x10^3/uL (4.0-11.0) Red Blood Count 4.94 x10^6/uL (4.30-5.70) Hemoglobin 14.4 g/dL (13.0-17.5) Hematocrit 42.0 % (39.0-53.0) Mean Corpuscular Volume 85 fL (79-100) Mean Corpuscular Hemoglobin 29 pg (25-35) Mean Corpuscular Hemoglobin Concent 34 g/dL (31-37) Red Cell Distribution Width 14.2 % (11.5-14.5) Platelet Count 252 x10^3/uL (140-400) Neutrophils (%) (Auto) 49 % (31-73) Lymphocytes (%) (Auto) 40 % (24-48) Monocytes (%) (Auto) 7 % (0-9) Eosinophils (%) (Auto) 2 % (0-3) Basophils (%) (Auto) 1 % (0-3) Neutrophils # (Auto) 4.3 x10^3/uL (1.8-7.7) Lymphocytes # (Auto) 3.5 x10^3/uL (1.0-4.8) Monocytes # (Auto) 0.6 x10^3/uL (0.0-1.1) Eosinophils # (Auto) 0.2 x10^3/uL (0.0-0.7) Basophils # (Auto) 0.1 x10^3/uL (0.0-0.2) Prothrombin Time 12.4 SEC (11.7-14.0) Prothromb Time International Ratio 1.0 (0.8-1.1) Activated Partial Thromboplast Time 28 SEC (24-38) Sodium Level 144 mmol/L (136-145) Potassium Level 4.0 mmol/L (3.5-5.1) Chloride Level 106 mmol/L (98-107) Carbon Dioxide Level 24 mmol/L (21-32) Anion Gap 14 (6-14) Blood Urea Nitrogen 22 mg/dL (8-26) Creatinine 1.1 mg/dL (0.7-1.3) Estimated GFR (Cockcroft-Gault) 68.5 BUN/Creatinine Ratio 20 (6-20) Glucose Level 159 mg/dL (70-99) Calcium Level 9.4 mg/dL (8.5-10.1) Total Bilirubin 0.4 mg/dL (0.2-1.0) Aspartate Amino Transf (AST/SGOT) 33 U/L (15-37) Alanine Aminotransferase (ALT/SGPT) 65 U/L (16-63) Alkaline Phosphatase 83 U/L (46-116) Troponin I High Sensitivity 7 ng/L (4-75) Total Protein 8.0 g/dL (6.4-8.2) Albumin 3.8 g/dL (3.4-5.0) Albumin/Globulin Ratio 0.9 (1.0-1.7) Triglycerides Level 290 mg/dL (0-150) Cholesterol Level 168 mg/dL (0-200) LDL Cholesterol, Calculated 79 mg/dL (0-100) VLDL Cholesterol, Calculated 58 mg/dL (0-40) Non-HDL Cholesterol Calculated 137 mg/dL (0-129) HDL Cholesterol 31 mg/dL (40-60) Cholesterol/HDL Ratio 5.4 Thyroid Stimulating Hormone (TSH) 0.630 uIU/mL (0.358-3.74) Glucose (Fingerstick) 127 mg/dL (70-99) Laboratory Tests Test 07/14/21 00:07 07/14/21 10:58 White Blood Count 8.6 x10^3/uL (4.0-11.0) Red Blood Count 4.94 x10^6/uL (4.30-5.70) Hemoglobin 14.4 g/dL (13.0-17.5) Hematocrit 42.0 % (39.0-53.0) Mean Corpuscular Volume 85 fL (79-100) Mean Corpuscular Hemoglobin 29 pg (25-35) Mean Corpuscular Hemoglobin Concent 34 g/dL (31-37) Red Cell Distribution Width 14.2 % (11.5-14.5) Platelet Count 252 x10^3/uL (140-400) Neutrophils (%) (Auto) 49 % (31-73) Lymphocytes (%) (Auto) 40 % (24-48) Monocytes (%) (Auto) 7 % (0-9) Eosinophils (%) (Auto) 2 % (0-3) Basophils (%) (Auto) 1 % (0-3) Neutrophils # (Auto) 4.3 x10^3/uL (1.8-7.7) Lymphocytes # (Auto) 3.5 x10^3/uL (1.0-4.8) Monocytes # (Auto) 0.6 x10^3/uL (0.0-1.1) Eosinophils # (Auto) 0.2 x10^3/uL (0.0-0.7) Basophils # (Auto) 0.1 x10^3/uL (0.0-0.2) Prothrombin Time 12.4 SEC (11.7-14.0) Prothromb Time International Ratio 1.0 (0.8-1.1) Activated Partial Thromboplast Time 28 SEC (24-38) Sodium Level 144 mmol/L (136-145) Potassium Level 4.0 mmol/L (3.5-5.1) Chloride Level 106 mmol/L (98-107) Carbon Dioxide Level 24 mmol/L (21-32) Anion Gap 14 (6-14) Blood Urea Nitrogen 22 mg/dL (8-26) Creatinine 1.1 mg/dL (0.7-1.3) Estimated GFR (Cockcroft-Gault) 68.5 BUN/Creatinine Ratio 20 (6-20) Glucose Level 159 mg/dL (70-99) Calcium Level 9.4 mg/dL (8.5-10.1) Total Bilirubin 0.4 mg/dL (0.2-1.0) Aspartate Amino Transf (AST/SGOT) 33 U/L (15-37) Alanine Aminotransferase (ALT/SGPT) 65 U/L (16-63) Alkaline Phosphatase 83 U/L (46-116) Troponin I High Sensitivity 7 ng/L (4-75) Total Protein 8.0 g/dL (6.4-8.2) Albumin 3.8 g/dL (3.4-5.0) Albumin/Globulin Ratio 0.9 (1.0-1.7) Triglycerides Level 290 mg/dL (0-150) Cholesterol Level 168 mg/dL (0-200) LDL Cholesterol, Calculated 79 mg/dL (0-100) VLDL Cholesterol, Calculated 58 mg/dL (0-40) Non-HDL Cholesterol Calculated 137 mg/dL (0-129) HDL Cholesterol 31 mg/dL (40-60) Cholesterol/HDL Ratio 5.4 Thyroid Stimulating Hormone (TSH) 0.630 uIU/mL (0.358-3.74) Glucose (Fingerstick) 127 mg/dL (70-99) Assessment/Plan Assessment/Plan 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 hx of hypertension, [id number] diabetes, pituitary tumor status post craniotomy and resection, with consequent hypopituitarism. history of thyroidectomy on thyroid replacement therapy -Presented 1 day history significant difficulty with ambulation. -CT head imaging unremarkable but clinically he appeared to have a stroke -Admit neuro consult -MRI echo ordered -No longer on home warfarin. Cannot remember why he was on it -Aspirin statin -Home meds as indicated -PT OT and speech therapy -Okay for diabetic diet if cleared by speech Justifications for Admission Other Justification HERNANDO ZAMBRANO MD Jul 14, 2021 12:27
--- NOTE | 2021-07-14 16:17 | NUR ---
SS following for discharge planning. SS reviewed pt chart and discussed with pt RN. Pt is from home and is currently on room air. Neurology consulted. PO diet. Brain MRI today. PT/OT ordered. SS will continue to follow for discharge planning.
--- NOTE | 2021-07-14 16:20 | NUR ---
Dr. Roland notified of patients MRI results which were acute infart in central midbrain, no orders received
--- NOTE | 2021-07-14 16:22 | RAD ---
MRI BRAIN WO Date: 07/14/2021 1:31 PM Indication: ataxia, dysarthria, suspect right cerebellar Comparison: CT 07/14/2021. Technique: Multiplanar multisequence MRI of the brain was performed without intravenous contrast usin g the standard protocol. Findings: Rounded area of restricted diffusion in the bilateral caudal medial midbrain, right greater than left . No acute hemorrhage. The ventricles are normal in size and configuration without hydrocephalus. Mil d scattered FLAIR hyperintensities in the subcortical and periventricular deep white matter, a nonspe cific finding, most commonly seen with chronic small vessel ischemic disease. Left posterior limb internal capsule chronic lacunar infarct. Postsurgical changes of right frontotemporal craniotomy with small area of underlying frontal lobe en cephalomalacia. Empty sella. No Chiari malformation. Mild incompletely characterized degenerative spo ndylosis of the visualized upper cervical spine. The visualized orbits and globes are normal. The visualized paranasal sinuses are clear. The mastoid air cells are clear. Normal flow voids within the vertebral, basilar, and internal carotid arteries indicating patency. IMPRESSION: 1. Acute bilateral midbrain infarct. Correlate for Wernekink commissure syndrome. No acute hemorrhage . 2. Left basal ganglia chronic lacunar infarct. 3. Mild scattered FLAIR hyperintensities in the subcortical and periventricular deep white matter, a nonspecific finding, most commonly seen with chronic small vessel ischemic disease. 4. Right frontotemporal craniotomy with small area of underlying frontal lobe encephalomalacia. FOR INTERNAL CODING PURPOSES Critical result: Findings discussed with the patient's nurse at 07/14/2021 4:15 PM. RESULT CODE: (C) Electronically signed by: Cain Walsh MD (07/14/2021 4:20 PM) [id number]
[2021-07-14] MEDS: FERROUS SULFATE 325 MG TABLET. PO SCH (16:41)
[2021-07-14] MEDS: HYDROCORTISONE 10 MG TABLET PO SCH (16:41)
[2021-07-14] MEDS: metFORMIN 500 MG TABLET PO SCH (16:41)
[2021-07-14] MEDS: ATORVASTATIN CALCIUM 40 MG TABLET. PO SCH (20:49)
[2021-07-15 03:37] VITALS: BP 145/100
[2021-07-15 04:15] LABS: HEMOGLOBIN A1C 7.7 % (4.8-5.6)
[2021-07-15] MEDS: LEVOTHYROXINE 175 MCG TABLET PO SCH (05:44)
[2021-07-15] MEDS ORDERED: PERFLUTREN PROTEIN-A MICROSPHR 0.22 MG/ML 3 ML VIAL. IV ONE ×2 (07:45→13:43)
[2021-07-15] MEDS: HYDROCORTISONE 10 MG TABLET PO SCH ×2 (08:00→17:00)
[2021-07-15 08:12] LABS: BASO # 0.1 x10^3/uL (0.0-0.2); BASO % 1 % (0-3); EOS # 0.2 x10^3/uL (0.0-0.7); EOS % 3 % (0-3); HEMATOCRIT 41.1 % (39.0-53.0); HEMOGLOBIN 13.8 g/dL (13.0-17.5); LYMPH # 2.6 x10^3/uL (1.0-4.8); LYMPH % 34 % (24-48); MEAN CORPUSCULAR HEMOGLOBIN 29 pg (25-35); MEAN CORPUSCULAR HGB CONC 34 g/dL (31-37); MEAN CORPUSCULAR VOLUME 86 fL (79-100); MONO # 0.5 x10^3/uL (0.0-1.1); MONO % 7 % (0-9); NEUT # 4.2 x10^3/uL (1.8-7.7); NEUT % 55 % (31-73); PLATELET COUNT 239 x10^3/uL (140-400); RED BLOOD COUNT 4.78 x10^6/uL (4.30-5.70); WHITE BLOOD COUNT 7.5 x10^3/uL (4.0-11.0)
[2021-07-15 08:23] VITALS: BP 150/99
[2021-07-15 08:28] LABS: ALBUMIN 3.6 g/dL (3.4-5.0); ALBUMIN/GLOBULIN RATIO 0.9 (1.0-1.7); CALCIUM 9.3 mg/dL (8.5-10.1); GFR 76.5; POTASSIUM 3.5 mmol/L (3.5-5.1); TOTAL BILIRUBIN 0.7 mg/dL (0.2-1.0); TOTAL PROTEIN 7.5 g/dL (6.4-8.2)
[2021-07-15] MEDS: FERROUS SULFATE 325 MG TABLET. PO SCH ×2 (08:45→17:00)
[2021-07-15] MEDS: CLOPIDOGREL BISULFATE 75 MG TABLET PO SCH (08:45)
[2021-07-15] MEDS: metFORMIN 500 MG TABLET PO SCH ×2 (08:45→17:00)
[2021-07-15] MEDS: ASPIRIN CHEWABLE 81 MG TABLET. PO SCH (08:46)
[2021-07-15 11:00] VITALS: BP 123/92
--- NOTE | 2021-07-15 11:01 | PDOC ---
[employer] PROGRESS NOTE Date of Service DOS: DATE: 07/15/21 TIME: 10:59 Chief Complaint Chief Complaint 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 history of thyroidectomy on thyroid replacement therapy -Presented 1 day history significant difficulty with ambulation. -CT head imaging unremarkable but clinically he appeared to have a stroke -Admit neuro consult -MRI echo ordered --> showing acute infarct. Echo still pending -No longer on home warfarin. Cannot remember why he was on it -Aspirin statin -Home meds as indicated -PT OT and speech therapy -Okay for diabetic diet if cleared by speech History of Present Illness History of Present Illness 07/15 Patient seen and examined when working with physical therapy. He was doing pretty well but needed to stop and rest a few times. Recommending rehab placement. Patient is agreeable for this. Speech a little bit slurred still. Neurology following. Vitals/I&O Vitals/I&O: Vital Signs Date Time Temp Pulse Resp B/P (MAP) Pulse Ox O2 Delivery O2 Flow Rate FiO2 07/15/21 08:23 97.9 76 18 150/99 (116) 96 Room Air 97.9 I & O 07/14/21 07/14/21 07/15/21 15:00 23:00 07:00 Intake Total 300 ml Output Total 550 ml Balance 300 ml -550 ml Physical Exam General: Alert, Oriented X3, Cooperative Heart: Regular rate Lungs: Clear Abdomen: Normal bowel sounds, Soft Extremities: No edema, Normal pulses Skin: No significant lesion Labs Labs: Laboratory Tests Test 07/14/21 16:58 07/14/21 20:42 07/15/21 06:30 07/15/21 07:47 Glucose (Fingerstick) 123 mg/dL (70-99) 160 mg/dL (70-99) 145 mg/dL (70-99) White Blood Count 7.5 x10^3/uL (4.0-11.0) Red Blood Count 4.78 x10^6/uL (4.30-5.70) Hemoglobin 13.8 g/dL (13.0-17.5) Hematocrit 41.1 % (39.0-53.0) Mean Corpuscular Volume 86 fL (79-100) Mean Corpuscular Hemoglobin 29 pg (25-35) Mean Corpuscular Hemoglobin Concent 34 g/dL (31-37) Red Cell Distribution Width 14.0 % (11.5-14.5) Platelet Count 239 x10^3/uL (140-400) Neutrophils (%) (Auto) 55 % (31-73) Lymphocytes (%) (Auto) 34 % (24-48) Monocytes (%) (Auto) 7 % (0-9) Eosinophils (%) (Auto) 3 % (0-3) Basophils (%) (Auto) 1 % (0-3) Neutrophils # (Auto) 4.2 x10^3/uL (1.8-7.7) Lymphocytes # (Auto) 2.6 x10^3/uL (1.0-4.8) Monocytes # (Auto) 0.5 x10^3/uL (0.0-1.1) Eosinophils # (Auto) 0.2 x10^3/uL (0.0-0.7) Basophils # (Auto) 0.1 x10^3/uL (0.0-0.2) Sodium Level 140 mmol/L (136-145) Potassium Level 3.5 mmol/L (3.5-5.1) Chloride Level 105 mmol/L (98-107) Carbon Dioxide Level 25 mmol/L (21-32) Anion Gap 10 (6-14) Blood Urea Nitrogen 18 mg/dL (8-26) Creatinine 1.0 mg/dL (0.7-1.3) Estimated GFR (Cockcroft-Gault) 76.5 BUN/Creatinine Ratio 18 (6-20) Glucose Level 127 mg/dL (70-99) Calcium Level 9.3 mg/dL (8.5-10.1) Total Bilirubin 0.7 mg/dL (0.2-1.0) Aspartate Amino Transf (AST/SGOT) 29 U/L (15-37) Alanine Aminotransferase (ALT/SGPT) 52 U/L (16-63) Alkaline Phosphatase 78 U/L (46-116) Total Protein 7.5 g/dL (6.4-8.2) Albumin 3.6 g/dL (3.4-5.0) Albumin/Globulin Ratio 0.9 (1.0-1.7) Assessment and Plan Assessmemt and Plan Problems Medical Problems: (1) Dysarthria Status: Acute (2) Gait disturbance Status: Acute Comment Review of Relevant I have reviewed the following items enedina (where applicable) has been applied. Medications: Current Medications Medications (Trade) Dose Ordered Sig/Mark Route PRN Reason Start Time Stop Time Status Last Admin Dose Admin Atorvastatin Calcium (Lipitor) 80 mg QHS PO 07/14/21 21:00 07/14/21 20:49 Ferrous Sulfate (Feosol) 325 mg BIDWMEALS PO 07/14/21 17:00 07/15/21 08:45 Levothyroxine Sodium (Synthroid) 175 mcg DAILY06 PO 07/15/21 06:00 07/15/21 05:44 Metformin HCl (Glucophage) 500 mg BIDWMEALS PO 07/14/21 17:00 07/15/21 08:45 Hydrocortisone (Cortef) 10 mg DAILYWSUP PO 07/14/21 17:00 07/14/21 16:41 Hydrocortisone (Cortef) 15 mg DAILYWBKFT PO 07/15/21 08:00 07/15/21 08:00 Justifications for Admission Other Justification HERNANDO ZAMBRANO MD Jul 15, 2021 11:01
--- NOTE | 2021-07-15 11:16 | PDOC ---
PROGRESS NOTES Date of Service DATE: 07/15/21 TIME: 11:12 Assessment Problems Medical Problems: (1) Dysarthria Status: Acute (2) Gait disturbance Status: Acute Acute bilateral midbrain infarct Left basal ganglia chronic lacunar infarct. 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 Diabetic neuropathy Hypertension, cardiac disease, diabetes Plan Aspirin failure, added clopidogrel Rehabilitation modalities, needs inpatient rehab Awaiting echocardiogram Statin Pituitary hormone replacement Subjective No new complaints Objective Vital Signs Date Time Temp Pulse Resp B/P (MAP) Pulse Ox O2 Delivery O2 Flow Rate FiO2 07/15/21 08:23 97.9 76 18 150/99 (116) 96 Room Air 97.9 Intake and Output 07/15/21 07:00 Intake Total 300 ml Output Total 550 ml Balance -250 ml Intake Oral 300 ml Output Urine Total 550 ml # Voids 1 PHYSICAL EXAM Alert. Oriented to time, place and person. PERRL. EOMI. CN: Speech dysarthric, otherwise no focal findings. Muscle tone: normal. Muscle strength: 5/5 DTR: 2+ Plantar reflex: Flexor Gait: not examined in bed. Sensory exam: Stocking glove loss Cerebellar: slight right dysmetria Review of Relevant I have reviewed the following items enedina (where applicable) has been applied. Labs Laboratory Tests Test 07/14/21 00:07 07/14/21 10:58 07/14/21 16:58 07/14/21 20:42 White Blood Count 8.6 x10^3/uL (4.0-11.0) Red Blood Count 4.94 x10^6/uL (4.30-5.70) Hemoglobin 14.4 g/dL (13.0-17.5) Hematocrit 42.0 % (39.0-53.0) Mean Corpuscular Volume 85 fL (79-100) Mean Corpuscular Hemoglobin 29 pg (25-35) Mean Corpuscular Hemoglobin Concent 34 g/dL (31-37) Red Cell Distribution Width 14.2 % (11.5-14.5) Platelet Count 252 x10^3/uL (140-400) Neutrophils (%) (Auto) 49 % (31-73) Lymphocytes (%) (Auto) 40 % (24-48) Monocytes (%) (Auto) 7 % (0-9) Eosinophils (%) (Auto) 2 % (0-3) Basophils (%) (Auto) 1 % (0-3) Neutrophils # (Auto) 4.3 x10^3/uL (1.8-7.7) Lymphocytes # (Auto) 3.5 x10^3/uL (1.0-4.8) Monocytes # (Auto) 0.6 x10^3/uL (0.0-1.1) Eosinophils # (Auto) 0.2 x10^3/uL (0.0-0.7) Basophils # (Auto) 0.1 x10^3/uL (0.0-0.2) Prothrombin Time 12.4 SEC (11.7-14.0) Prothromb Time International Ratio 1.0 (0.8-1.1) Activated Partial Thromboplast Time 28 SEC (24-38) Sodium Level 144 mmol/L (136-145) Potassium Level 4.0 mmol/L (3.5-5.1) Chloride Level 106 mmol/L (98-107) Carbon Dioxide Level 24 mmol/L (21-32) Anion Gap 14 (6-14) Blood Urea Nitrogen 22 mg/dL (8-26) Creatinine 1.1 mg/dL (0.7-1.3) Estimated GFR (Cockcroft-Gault) 68.5 BUN/Creatinine Ratio 20 (6-20) Glucose Level 159 mg/dL (70-99) Hemoglobin A1c 7.7 % (4.8-5.6) Calcium Level 9.4 mg/dL (8.5-10.1) Total Bilirubin 0.4 mg/dL (0.2-1.0) Aspartate Amino Transf (AST/SGOT) 33 U/L (15-37) Alanine Aminotransferase (ALT/SGPT) 65 U/L (16-63) Alkaline Phosphatase 83 U/L (46-116) Troponin I High Sensitivity 7 ng/L (4-75) Total Protein 8.0 g/dL (6.4-8.2) Albumin 3.8 g/dL (3.4-5.0) Albumin/Globulin Ratio 0.9 (1.0-1.7) Triglycerides Level 290 mg/dL (0-150) Cholesterol Level 168 mg/dL (0-200) LDL Cholesterol, Calculated 79 mg/dL (0-100) VLDL Cholesterol, Calculated 58 mg/dL (0-40) Non-HDL Cholesterol Calculated 137 mg/dL (0-129) HDL Cholesterol 31 mg/dL (40-60) Cholesterol/HDL Ratio 5.4 Thyroid Stimulating Hormone (TSH) 0.630 uIU/mL (0.358-3.74) Glucose (Fingerstick) 127 mg/dL (70-99) 123 mg/dL (70-99) 160 mg/dL (70-99) Test 07/15/21 06:30 07/15/21 07:47 White Blood Count 7.5 x10^3/uL (4.0-11.0) Red Blood Count 4.78 x10^6/uL (4.30-5.70) Hemoglobin 13.8 g/dL (13.0-17.5) Hematocrit 41.1 % (39.0-53.0) Mean Corpuscular Volume 86 fL (79-100) Mean Corpuscular Hemoglobin 29 pg (25-35) Mean Corpuscular Hemoglobin Concent 34 g/dL (31-37) Red Cell Distribution Width 14.0 % (11.5-14.5) Platelet Count 239 x10^3/uL (140-400) Neutrophils (%) (Auto) 55 % (31-73) Lymphocytes (%) (Auto) 34 % (24-48) Monocytes (%) (Auto) 7 % (0-9) Eosinophils (%) (Auto) 3 % (0-3) Basophils (%) (Auto) 1 % (0-3) Neutrophils # (Auto) 4.2 x10^3/uL (1.8-7.7) Lymphocytes # (Auto) 2.6 x10^3/uL (1.0-4.8) Monocytes # (Auto) 0.5 x10^3/uL (0.0-1.1) Eosinophils # (Auto) 0.2 x10^3/uL (0.0-0.7) Basophils # (Auto) 0.1 x10^3/uL (0.0-0.2) Sodium Level 140 mmol/L (136-145) Potassium Level 3.5 mmol/L (3.5-5.1) Chloride Level 105 mmol/L (98-107) Carbon Dioxide Level 25 mmol/L (21-32) Anion Gap 10 (6-14) Blood Urea Nitrogen 18 mg/dL (8-26) Creatinine 1.0 mg/dL (0.7-1.3) Estimated GFR (Cockcroft-Gault) 76.5 BUN/Creatinine Ratio 18 (6-20) Glucose Level 127 mg/dL (70-99) Calcium Level 9.3 mg/dL (8.5-10.1) Total Bilirubin 0.7 mg/dL (0.2-1.0) Aspartate Amino Transf (AST/SGOT) 29 U/L (15-37) Alanine Aminotransferase (ALT/SGPT) 52 U/L (16-63) Alkaline Phosphatase 78 U/L (46-116) Total Protein 7.5 g/dL (6.4-8.2) Albumin 3.6 g/dL (3.4-5.0) Albumin/Globulin Ratio 0.9 (1.0-1.7) Glucose (Fingerstick) 145 mg/dL (70-99) Laboratory Tests Test 07/14/21 16:58 07/14/21 20:42 07/15/21 06:30 07/15/21 07:47 Glucose (Fingerstick) 123 mg/dL (70-99) 160 mg/dL (70-99) 145 mg/dL (70-99) White Blood Count 7.5 x10^3/uL (4.0-11.0) Red Blood Count 4.78 x10^6/uL (4.30-5.70) Hemoglobin 13.8 g/dL (13.0-17.5) Hematocrit 41.1 % (39.0-53.0) Mean Corpuscular Volume 86 fL (79-100) Mean Corpuscular Hemoglobin 29 pg (25-35) Mean Corpuscular Hemoglobin Concent 34 g/dL (31-37) Red Cell Distribution Width 14.0 % (11.5-14.5) Platelet Count 239 x10^3/uL (140-400) Neutrophils (%) (Auto) 55 % (31-73) Lymphocytes (%) (Auto) 34 % (24-48) Monocytes (%) (Auto) 7 % (0-9) Eosinophils (%) (Auto) 3 % (0-3) Basophils (%) (Auto) 1 % (0-3) Neutrophils # (Auto) 4.2 x10^3/uL (1.8-7.7) Lymphocytes # (Auto) 2.6 x10^3/uL (1.0-4.8) Monocytes # (Auto) 0.5 x10^3/uL (0.0-1.1) Eosinophils # (Auto) 0.2 x10^3/uL (0.0-0.7) Basophils # (Auto) 0.1 x10^3/uL (0.0-0.2) Sodium Level 140 mmol/L (136-145) Potassium Level 3.5 mmol/L (3.5-5.1) Chloride Level 105 mmol/L (98-107) Carbon Dioxide Level 25 mmol/L (21-32) Anion Gap 10 (6-14) Blood Urea Nitrogen 18 mg/dL (8-26) Creatinine 1.0 mg/dL (0.7-1.3) Estimated GFR (Cockcroft-Gault) 76.5 BUN/Creatinine Ratio 18 (6-20) Glucose Level 127 mg/dL (70-99) Calcium Level 9.3 mg/dL (8.5-10.1) Total Bilirubin 0.7 mg/dL (0.2-1.0) Aspartate Amino Transf (AST/SGOT) 29 U/L (15-37) Alanine Aminotransferase (ALT/SGPT) 52 U/L (16-63) Alkaline Phosphatase 78 U/L (46-116) Total Protein 7.5 g/dL (6.4-8.2) Albumin 3.6 g/dL (3.4-5.0) Albumin/Globulin Ratio 0.9 (1.0-1.7) Medications Current Medications Sodium Chloride 500 ml @ 500 mls/hr 1X ONCE IV Last administered on 07/14/21at 00:50; Start 07/14/21 at 01:00; Stop 07/14/21 at 01:59; Status DC Iohexol (Omnipaque 300 Mg/ml) 75 ml 1X ONCE IV Last administered on 07/14/21at 01:14; Start 07/14/21 at 01:00; Stop 07/14/21 at 01:01; Status DC Info (CONTRAST GIVEN -- Rx MONITORING) 1 each PRN DAILY PRN MC SEE COMMENTS; Start 07/14/21 at 00:45; Stop 07/16/21 at 00:44 Ondansetron HCl (Zofran) 4 mg PRN Q8HRS PRN IVP NAUSEA/VOMITING 1ST CHOICE; Start 07/14/21 at 03:45; Stop 07/15/21 at 03:44; Status DC Acetaminophen (Tylenol) 650 mg PRN Q4HRS PRN PO FEVER > 100.3'F; Start 07/14/21 at 03:45; Stop 07/14/21 at 15:53; Status DC Atorvastatin Calcium (Lipitor) 80 mg QHS PO Last administered on 07/14/21at 20:49; Start 07/14/21 at 21:00 Acetaminophen (Tylenol) 650 mg PRN Q6HRS PRN PO MILD PAIN / TEMP > 100.3'F; Start 07/14/21 at 08:45 Aspirin (Aspirin Chewable) 81 mg DAILYWBKFT PO Last administered on 07/15/21at 08:46; Start 07/14/21 at 09:00 Aspirin (Aspirin Rectal Supp) 300 mg PRN DAILY PRN ID IF UNABLE TO TAKE PO; Start 07/14/21 at 08:45 Clopidogrel Bisulfate (Plavix) 75 mg DAILYWBKFT PO Last administered on 2at 08:45; Start 07/14/21 at 09:00 Ferrous Sulfate (Feosol) 325 mg BIDWMEALS PO Last administered on 07/15/21at 08:45; Start 07/14/21 at 17:00 Levothyroxine Sodium (Synthroid) 175 mcg DAILY06 PO Last administered on 07/15/21at 05:44; Start 07/15/21 at 06:00 Metformin HCl (Glucophage) 500 mg BIDWMEALS PO Last administered on 07/15/21at 08:45; Start 07/14/21 at 17:00 Hydrocortisone (Cortef) 10 mg DAILYWSUP PO Last administered on 07/14/21at 16:41; Start 07/14/21 at 17:00 Hydrocortisone (Cortef) 15 mg DAILYWBKFT PO Last administered on 07/15/21at 08:00; Start 07/15/21 at 08:00 Perflutren Protein Type A Microsphe (Optison) 0.66 mg 1X ONCE IV ; Start 07/15/21 at 07:45; Stop 07/15/21 at 07:46; Status DC Active Scripts Active Levsin (Hyoscyamine Sulfate) 0.125 Mg Tablet 0.125 Mg PO Q4HRS PRN Reported Tramadol Hcl 50 Mg Tablet 50 Mg PO Q4HRS PRN Ferrous Sulfate 325 Mg Tablet 1 Tab PO BID Coumadin (Warfarin Sodium) 6 Mg Tablet 1 Tab PO DAILY Trulicity (Dulaglutide) 1.5 Mg/0.5 Ml Pen.injctr 1.5 Mg SQ WEEKLY Hydrocortisone 5 Mg Tablet 2 Tab PO DAILYWSUP Hydrocortisone 5 Mg Tablet 3 Tab PO DAILY08 Acetaminophen 500 Mg Tablet 500 Mg PO PRN TID PRN Vitamin D (Cholecalciferol (Vitamin D3)) 2,000 Unit Capsule 2,000 Unit PO DAILY Levothyroxine Sodium 175 Mcg Tablet 1 Tab PO DAILY Metformin Hcl 500 Mg Tablet 1 Tab PO BID Vitals/I & O Vital Sign - Last 24 Hours 07/14/21 07/14/21 07/14/21 07/14/21 12:00 16:23 19:00 20:00 Temp 98.2 98.6 98.2 98.6 Pulse 82 83 79 Resp 18 18 20 B/P (MAP) 122/80 (94) 131/87 (102) 130/79 (96) Pulse Ox 97 98 O2 Delivery Room Air Room Air Room Air 07/14/21 07/15/21 07/15/21 07/15/21 23:00 03:37 08:00 08:23 Temp 98.3 97.8 97.9 98.3 97.8 97.9 Pulse 79 80 76 Resp 20 20 18 B/P (MAP) 130/82 (98) 145/100 (115) 150/99 (116) Pulse Ox 97 97 96 O2 Delivery Room Air Room Air Room Air Room Air Intake and Output 07/14/21 07/14/21 07/15/21 15:00 23:00 07:00 Intake Total 300 ml Output Total 550 ml Balance 300 ml -550 ml Images MRI BRAIN WO Date: 07/14/2021 1:31 PM Indication: ataxia, dysarthria, suspect right cerebellar Comparison: CT 07/14/2021. Technique: Multiplanar multisequence MRI of the brain was performed without intravenous contrast using the standard protocol. Findings: Rounded area of restricted diffusion in the bilateral caudal medial midbrain, right greater than left. No acute hemorrhage. The ventricles are normal in size and configuration without hydrocephalus. Mild scattered FLAIR hyperintensities in the subcortical and periventricular deep white matter, a nonspecific finding, most commonly seen with chronic small vessel ischemic disease. Left posterior limb internal capsule chronic lacunar infarct. Postsurgical changes of right frontotemporal craniotomy with small area of underlying frontal lobe encephalomalacia. Empty sella. No Chiari malformation. Mild incompletely characterized degenerative spondylosis of the visualized upper cervical spine. The visualized orbits and globes are normal. The visualized paranasal sinuses are clear. The mastoid air cells are clear. Normal flow voids within the vertebral, basilar, and internal carotid arteries indicating patency. IMPRESSION: 1. Acute bilateral midbrain infarct. Correlate for Wernekink commissure syndrome. No acute hemorrhage. 2. Left basal ganglia chronic lacunar infarct. 3. Mild scattered FLAIR hyperintensities in the subcortical and periventricular deep white matter, a nonspecific finding, most commonly seen with chronic small vessel ischemic disease. 4. Right frontotemporal craniotomy with small area of underlying frontal lobe encephalomalacia. Justicifation of Admission Dx: Justifications for Admission: Justification of Admission Dx: Yes Stroke - Ischemic: Stroke-Ischemic JUAREZ GARCIA MD Jul 15, 2021 11:16
--- NOTE | 2021-07-15 13:53 | NUR ---
SS following up with discharge planning. SS reviewed pt chart and discussed with pt RN. Pt is from home with son and is currently on room air. Neurology following. PT/OT recommended acute rehabilitation. SS met with pt and discussed discharge planning and acute rehabilitation. Pt agreeable to acute rehabilitation. Options discussed. Pt requesting referral to [facility], ; fax [phone]. Referral sent as requested. Pt's family notified. COVID19 PCR requested for placement. SS will continue to follow for discharge planning.
[2021-07-15 15:00] VITALS: BP 121/73
--- NOTE | 2021-07-15 16:33 | CARD ---
MR#: [id number] Date of Study: 07/15/2021 Ordering Physician: JUAREZ GARCIA, Referring Physician: JUAREZ GARCIA, Tech: Krysta Marti [facility] APPROVED REPORT EXAM: Two-dimensional and M-mode echocardiogram with Doppler and color Doppler. Other Information Quality : Technically LimitedHR: 86bpm Rhythm : NSRTechnically limited study due to body habitus. INDICATION CVA/TIA Echo Enhancing Agent Indication: Endocardial border delineation Agent/Amount Used: Optison 3mL RISK FACTORS Hypertension Obesity Hyperlipidemia 2D DIMENSIONS Left Atrium(2D)3.5 (1.6-4.0cm)IVSd1.2 (0.7-1.1cm) Aortic Root(2D)3.4 (2.0-3.7cm)LVDd4.1 (3.9-5.9cm) LVOT Diameter2.2 (1.8-2.4cm)PWd1.2 (0.7-1.1cm) LVDs3.7 (2.5-4.0cm)FS (%) 10.0 % SV16.1 mlLVEF(%)22.2 (>50%) Aortic Valve AoV Peak Xiang.89.7cm/sAoV VTI18.4cm AO Peak GR.3.2mmHgAO Mean GR.1mmHg Pulmonary Valve PV Peak Qlcwosum39.2cm/s LEFT VENTRICLE The left ventricle is normal size. There is mild concentric left ventricular hypertrophy. The left ve ntricular systolic function is normal and the ejection fraction is within normal range. Estimated eje ction fraction 55-60%. There is grossly normal LV segmental wall motion. Technically very difficult i mages despite contrast use. Tissue Doppler imaging reveals moderate left ventricular diastolic dysfun ction. RIGHT VENTRICLE The right ventricle is normal size. There is normal right ventricular wall thickness. The right ventr icular systolic function is normal. ATRIA Not well visualized. AORTIC VALVE Not well visualized. Doppler and Color Flow revealed no significant aortic regurgitation. There is no significant aortic valvular stenosis. MITRAL VALVE The mitral valve is normal in structure and function. There is no evidence of mitral valve prolapse. There is no mitral valve stenosis. Doppler and Color Flow revealed no mitral valve regurgitation note d. TRICUSPID VALVE Doppler and Color Flow revealed no tricuspid valve regurgitation noted. GREAT VESSELS The aortic root is normal in size. The ascending aorta is normal in size. Due to poor image quality, the IVC could not be assessed. PERICARDIAL EFFUSION There is no evidence of significant pericardial effusion. Critical Notification Critical Value: No <Conclusion> The left ventricular systolic function is normal and the ejection fraction is within normal range. E stimated ejection fraction 55-60%. There is grossly normal LV segmental wall motion. Technically very difficult images despite contrast use. Signed by : Rory Hughes, Electronically Approved : 07/15/2021 16:33:23
[2021-07-15 19:45] VITALS: BP 142/81
[2021-07-15] MEDS: ATORVASTATIN CALCIUM 40 MG TABLET. PO SCH (21:51)
[2021-07-15 23:16] VITALS: BP 132/83
[2021-07-16 03:54] VITALS: BP 140/88
[2021-07-16] MEDS: LEVOTHYROXINE 175 MCG TABLET PO SCH (06:14)
[2021-07-16 07:00] VITALS: BP 160/98
[2021-07-16] MEDS: metFORMIN 500 MG TABLET PO SCH ×2 (08:19→16:30)
[2021-07-16] MEDS: FERROUS SULFATE 325 MG TABLET. PO SCH ×2 (08:19→16:30)
[2021-07-16] MEDS: ASPIRIN CHEWABLE 81 MG TABLET. PO SCH (08:19)
[2021-07-16] MEDS: CLOPIDOGREL BISULFATE 75 MG TABLET PO SCH (08:19)
[2021-07-16] MEDS: HYDROCORTISONE 10 MG TABLET PO SCH ×2 (08:20→16:30)
[2021-07-16 11:00] VITALS: BP 137/89
--- NOTE | 2021-07-16 11:56 | PDOC ---
PROGRESS NOTES Date of Service DATE: 07/16/21 TIME: 11:54 Assessment Problems Medical Problems: (1) Dysarthria Status: Acute (2) Gait disturbance Status: Acute Acute bilateral midbrain infarct Left basal ganglia chronic lacunar infarct. 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 Diabetic neuropathy Hypertension, cardiac disease, diabetes Plan Aspirin failure, added clopidogrel Rehabilitation modalities, needs inpatient rehab, okay to transfer to [facility] today Statin Pituitary hormone replacement Subjective No new complaints, feeling better Objective Vital Signs Date Time Temp Pulse Resp B/P (MAP) Pulse Ox O2 Delivery O2 Flow Rate FiO2 07/16/21 08:00 Room Air 07/16/21 07:00 98.0 77 16 160/98 (118) 95 98.0 Intake and Output 07/16/21 07:00 Intake Total 600 ml Balance 600 ml Intake Oral 600 ml # Voids 3 PHYSICAL EXAM Alert. Oriented to time, place and person. PERRL. EOMI. CN: Speech dysarthric, otherwise no focal findings. Muscle tone: normal. Muscle strength: 5/5 DTR: 2+ Plantar reflex: Flexor Gait: not examined in bed. Sensory exam: Stocking glove loss Cerebellar: slight right dysmetria continues to improve Review of Relevant I have reviewed the following items enedina (where applicable) has been applied. Labs Laboratory Tests Test 07/14/21 16:58 07/14/21 20:42 07/15/21 06:30 07/15/21 07:47 Glucose (Fingerstick) 123 mg/dL (70-99) 160 mg/dL (70-99) 145 mg/dL (70-99) White Blood Count 7.5 x10^3/uL (4.0-11.0) Red Blood Count 4.78 x10^6/uL (4.30-5.70) Hemoglobin 13.8 g/dL (13.0-17.5) Hematocrit 41.1 % (39.0-53.0) Mean Corpuscular Volume 86 fL (79-100) Mean Corpuscular Hemoglobin 29 pg (25-35) Mean Corpuscular Hemoglobin Concent 34 g/dL (31-37) Red Cell Distribution Width 14.0 % (11.5-14.5) Platelet Count 239 x10^3/uL (140-400) Neutrophils (%) (Auto) 55 % (31-73) Lymphocytes (%) (Auto) 34 % (24-48) Monocytes (%) (Auto) 7 % (0-9) Eosinophils (%) (Auto) 3 % (0-3) Basophils (%) (Auto) 1 % (0-3) Neutrophils # (Auto) 4.2 x10^3/uL (1.8-7.7) Lymphocytes # (Auto) 2.6 x10^3/uL (1.0-4.8) Monocytes # (Auto) 0.5 x10^3/uL (0.0-1.1) Eosinophils # (Auto) 0.2 x10^3/uL (0.0-0.7) Basophils # (Auto) 0.1 x10^3/uL (0.0-0.2) Sodium Level 140 mmol/L (136-145) Potassium Level 3.5 mmol/L (3.5-5.1) Chloride Level 105 mmol/L (98-107) Carbon Dioxide Level 25 mmol/L (21-32) Anion Gap 10 (6-14) Blood Urea Nitrogen 18 mg/dL (8-26) Creatinine 1.0 mg/dL (0.7-1.3) Estimated GFR (Cockcroft-Gault) 76.5 BUN/Creatinine Ratio 18 (6-20) Glucose Level 127 mg/dL (70-99) Calcium Level 9.3 mg/dL (8.5-10.1) Total Bilirubin 0.7 mg/dL (0.2-1.0) Aspartate Amino Transf (AST/SGOT) 29 U/L (15-37) Alanine Aminotransferase (ALT/SGPT) 52 U/L (16-63) Alkaline Phosphatase 78 U/L (46-116) Total Protein 7.5 g/dL (6.4-8.2) Albumin 3.6 g/dL (3.4-5.0) Albumin/Globulin Ratio 0.9 (1.0-1.7) Test 07/15/21 11:41 07/15/21 17:13 07/15/21 20:30 07/16/21 07:08 Glucose (Fingerstick) 158 mg/dL (70-99) 139 mg/dL (70-99) 213 mg/dL (70-99) 175 mg/dL (70-99) Test 07/16/21 11:24 Glucose (Fingerstick) 165 mg/dL (70-99) Laboratory Tests Test 07/15/21 17:13 07/15/21 20:30 07/16/21 07:08 07/16/21 11:24 Glucose (Fingerstick) 139 mg/dL (70-99) 213 mg/dL (70-99) 175 mg/dL (70-99) 165 mg/dL (70-99) Medications Current Medications Sodium Chloride 500 ml @ 500 mls/hr 1X ONCE IV Last administered on 07/14/21at 00:50; Start 07/14/21 at 01:00; Stop 07/14/21 at 01:59; Status DC Iohexol (Omnipaque 300 Mg/ml) 75 ml 1X ONCE IV Last administered on 07/14/21at 01:14; Start 07/14/21 at 01:00; Stop 07/14/21 at 01:01; Status DC Info (CONTRAST GIVEN -- Rx MONITORING) 1 each PRN DAILY PRN MC SEE COMMENTS; Start 07/14/21 at 00:45; Stop 07/16/21 at 00:44; Status DC Ondansetron HCl (Zofran) 4 mg PRN Q8HRS PRN IVP NAUSEA/VOMITING 1ST CHOICE; Start 07/14/21 at 03:45; Stop 07/15/21 at 03:44; Status DC Acetaminophen (Tylenol) 650 mg PRN Q4HRS PRN PO FEVER > 100.3'F; Start 07/14/21 at 03:45; Stop 07/14/21 at 15:53; Status DC Atorvastatin Calcium (Lipitor) 80 mg QHS PO Last administered on 07/15/21at 21:51; Start 07/14/21 at 21:00 Acetaminophen (Tylenol) 650 mg PRN Q6HRS PRN PO MILD PAIN / TEMP > 100.3'F; Start 07/14/21 at 08:45 Aspirin (Aspirin Chewable) 81 mg DAILYWBKFT PO Last administered on 07/16/21at 08:19; Start 07/14/21 at 09:00 Aspirin (Aspirin Rectal Supp) 300 mg PRN DAILY PRN ME IF UNABLE TO TAKE PO; Start 07/14/21 at 08:45 Clopidogrel Bisulfate (Plavix) 75 mg DAILYWBKFT PO Last administered on 07/16/21at 08:19; Start 07/14/21 at 09:00 Ferrous Sulfate (Feosol) 325 mg BIDWMEALS PO Last administered on 07/16/21at 08:19; Start 07/14/21 at 17:00 Levothyroxine Sodium (Synthroid) 175 mcg DAILY06 PO Last administered on 07/16/21at 06:14; Start 07/15/21 at 06:00 Metformin HCl (Glucophage) 500 mg BIDWMEALS PO Last administered on 07/16/21at 08:19; Start 07/14/21 at 17:00 Hydrocortisone (Cortef) 10 mg DAILYWSUP PO Last administered on 07/15/21at 17:00; Start 07/14/21 at 17:00 Hydrocortisone (Cortef) 15 mg DAILYWBKFT PO Last administered on 07/16/21at 08:20; Start 07/15/21 at 08:00 Perflutren Protein Type A Microsphe (Optison) 0.66 mg 1X ONCE IV Last administered on 07/15/21at 07:45; Start 07/15/21 at 07:45; Stop 07/15/21 at 07:46; Status DC Perflutren Protein Type A Microsphe (Optison) 0.66 mg STK-MED ONCE IV ; Start 07/15/21 at 13:43; Stop 07/15/21 at 13:44; Status DC Active Scripts Active Levsin (Hyoscyamine Sulfate) 0.125 Mg Tablet 0.125 Mg PO Q4HRS PRN Reported Tramadol Hcl 50 Mg Tablet 50 Mg PO Q4HRS PRN Ferrous Sulfate 325 Mg Tablet 1 Tab PO BID Coumadin (Warfarin Sodium) 6 Mg Tablet 1 Tab PO DAILY Trulicity (Dulaglutide) 1.5 Mg/0.5 Ml Pen.injctr 1.5 Mg SQ WEEKLY Hydrocortisone 5 Mg Tablet 2 Tab PO DAILYWSUP Hydrocortisone 5 Mg Tablet 3 Tab PO DAILY08 Acetaminophen 500 Mg Tablet 500 Mg PO PRN TID PRN Vitamin D (Cholecalciferol (Vitamin D3)) 2,000 Unit Capsule 2,000 Unit PO DAILY Levothyroxine Sodium 175 Mcg Tablet 1 Tab PO DAILY Metformin Hcl 500 Mg Tablet 1 Tab PO BID Vitals/I & O Vital Sign - Last 24 Hours 07/15/21 07/15/21 07/15/21 07/16/21 15:00 19:45 23:16 03:54 Temp 98.1 98.3 98.4 98.2 98.1 98.3 98.4 98.2 Pulse 86 84 83 85 Resp 18 18 18 20 B/P (MAP) 121/73 (89) 142/81 (101) 132/83 (99) 140/88 (105) Pulse Ox 95 96 96 98 O2 Delivery Room Air Room Air Room Air Room Air 07/16/21 07/16/21 07:00 08:00 Temp 98.0 98.0 Pulse 77 Resp 16 B/P (MAP) 160/98 (118) Pulse Ox 95 O2 Delivery Room Air Room Air Intake and Output 07/15/21 07/15/21 07/16/21 15:00 23:00 07:00 Intake Total 400 ml 200 ml 0 ml Balance 400 ml 200 ml 0 ml Images Echocardiogram, 07/15: LEFT VENTRICLE The left ventricle is normal size. There is mild concentric left ventricular hypertrophy. The left ventricular systolic function is normal and the ejection fraction is within normal range. Estimated ejection fraction 55-60%. There is grossly normal LV segmental wall motion. Technically very difficult images despite contrast use. Tissue Doppler imaging reveals moderate left ventricular diastolic dysfunction. RIGHT VENTRICLE The right ventricle is normal size. There is normal right ventricular wall thickness. The right ventricular systolic function is normal. ATRIA Not well visualized. AORTIC VALVE Not well visualized. Doppler and Color Flow revealed no significant aortic regurgitation. There is no significant aortic valvular stenosis. MITRAL VALVE The mitral valve is normal in structure and function. There is no evidence of mitral valve prolapse. There is no mitral valve stenosis. Doppler and Color Flow revealed no mitral valve regurgitation noted. TRICUSPID VALVE Doppler and Color Flow revealed no tricuspid valve regurgitation noted. GREAT VESSELS The aortic root is normal in size. The ascending aorta is normal in size. Due to poor image quality, the IVC could not be assessed. PERICARDIAL EFFUSION There is no evidence of significant pericardial effusion. Critical Notification Critical Value: No <Conclusion> The left ventricular systolic function is normal and the ejection fraction is within normal range. Estimated ejection fraction 55-60%. There is grossly normal LV segmental wall motion. Technically very difficult images despite contrast use. Justicifation of Admission Dx: Justifications for Admission: Justification of Admission Dx: Yes Stroke - Ischemic: Stroke-Ischemic JUAREZ GARCIA MD Jul 16, 2021 11:56
--- NOTE | 2021-07-16 12:08 | NUR ---
SS following up with discharge planning. SS reviewed pt chart and discussed with pt RN. Pt is currently on room air. PT/OT recommended acute rehabilitation. Pt accepted at [facility], ; fax [phone], pending insurance approval. COVID19 test pending for placement. SS will continue to follow for discharge planning. Addendum: 07/16/21 at 1635 by SANTHOSH RUEDA SS Insurance authorization received for [facility]. Discharge orders received and sent to [facility]. COVID19 negative. Pt will discharge today and go to [facility] at 1815. [facility] to provide transportation. Pt, pt's RN, and pt's son notified.
--- NOTE | 2021-07-16 13:27 | PDOC ---
[employer] PROGRESS NOTE Date of Service DOS: DATE: 07/16/21 TIME: 13:26 Chief Complaint Chief Complaint 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 history of thyroidectomy on thyroid replacement therapy -Presented 1 day history significant difficulty with ambulation. -CT head imaging unremarkable but clinically he appeared to have a stroke -Admit neuro consult -MRI echo ordered --> showing acute infarct. Echo still pending -No longer on home warfarin. Cannot remember why he was on it -Aspirin statin -Home meds as indicated -PT OT and speech therapy -Okay for diabetic diet if cleared by speech History of Present Illness History of Present Illness 07/16 Patient evaluated examined at bedside. Doing well feels that he is improving. Accepted to [facility] waiting on insurance Auth. Can discharge once received. 07/15 Patient seen and examined when working with physical therapy. He was doing pretty well but needed to stop and rest a few times. Recommending rehab placement. Patient is agreeable for this. Speech a little bit slurred still. Neurology following. Vitals/I&O Vitals/I&O: Vital Signs Date Time Temp Pulse Resp B/P (MAP) Pulse Ox O2 Delivery O2 Flow Rate FiO2 07/16/21 08:00 Room Air 07/16/21 07:00 98.0 77 16 160/98 (118) 95 98.0 I & O 07/15/21 07/15/21 07/16/21 15:00 23:00 07:00 Intake Total 400 ml 200 ml 0 ml Balance 400 ml 200 ml 0 ml Physical Exam General: Alert, Oriented X3, Cooperative Heart: Regular rate Lungs: Clear Abdomen: Normal bowel sounds, Soft Extremities: No edema, Normal pulses Skin: No significant lesion Labs Labs: Laboratory Tests Test 07/15/21 17:13 07/15/21 20:30 07/16/21 07:08 07/16/21 11:24 Glucose (Fingerstick) 139 mg/dL (70-99) 213 mg/dL (70-99) 175 mg/dL (70-99) 165 mg/dL (70-99) Assessment and Plan Assessmemt and Plan Problems Medical Problems: (1) Dysarthria Status: Acute (2) Gait disturbance Status: Acute Comment Review of Relevant I have reviewed the following items enedina (where applicable) has been applied. Justifications for Admission Other Justification HERNANDO ZAMBRANO MD Jul 16, 2021 13:27
[2021-07-16 15:00] VITALS: BP 139/99
[2021-07-16] MEDS ORDERED: ASPI-630 PO (16:25)
[2021-07-16] MEDS ORDERED: ATOR40TA59 PO (16:25)
[2021-07-16] MEDS ORDERED: CLOP75TA PO (16:25)
--- NOTE | 2021-07-16 16:26 | SNU/HH DC ---
DISCHARGE ORDERS DISCHARGE INFORMATION: DISCHARGE DATE: Jul 16, 2021 FINAL DIAGNOSIS Problems Medical Problems: (1) Dysarthria Status: Acute (2) Gait disturbance Status: Acute CONDITION ON DISCHARGE: Stable CODE STATUS: Code Status: Full ALF: SNF STAY <30 DAYS: No HOSPICE: HOSPICE: No POST DISCHARGE ORDERS: ACTIVITY ORDERS: Activity as tolerated, Progressive ambulation WEIGHT BEARING STATUS: As tolerated BATHING ORDERS: Shower-keep dressing dry, No Tub Bath until see Dr. FOLEY AFTER DISCHARGE: Cardiac WOUND/INCISION CARE: Ice to area for comfort, Keep wound/cast CDI, Do not change dressing, Reinforce dressing PRN CHECKS AFTER DISCHARGE: CHECKS AFTER DISCHARGE: Check blood press - daily, Check blood sugar, ac/hs TREATMENT/EQUIPMENT ORDERS: ADAPTIVE EQUIPMENT NEEDED: None Physical Therapy For: Evalulation/Treatment Occupational Therapy For: Evaluation/Treatment DISCHARGE MEDICATIONS: Home Meds Active Scripts Aspirin (ASPIRIN) 81 Mg Tab.chew, 81 MG PO DAILYWBKFT for cad for 30 Days, #30 TAB.CHEW Prov:HERNANDO ZAMBRANO MD 07/16/21 Atorvastatin Calcium (ATORVASTATIN CALCIUM) 40 Mg Tablet, 80 MG PO QHS for hpld for 30 Days, #60 TAB Prov:HERNANDO ZAMBRANO MD 07/16/21 Clopidogrel Bisulfate (CLOPIDOGREL) 75 Mg Tablet, 75 MG PO DAILYWBKFT for stroke for 30 Days, #30 TAB Prov:HERNANDO ZAMBRANO MD 07/16/21 Hyoscyamine Sulfate (LEVSIN) 0.125 Mg Tablet, 0.125 MG PO Q4HRS PRN for PAIN, #20 TAB Prov:SUSI JAFFE APRN 05/12/19 Reported Medications Tramadol Hcl (TRAMADOL HCL) 50 Mg Tablet, 50 MG PO Q4HRS PRN for PAIN, #60 TAB 0 Refills 06/16/18 Ferrous Sulfate (FERROUS SULFATE) 325 Mg Tablet, 1 TAB PO BID for supplement, #60 TAB 0 Refills 06/16/18 Dulaglutide (Trulicity) 1.5 Mg/0.5 Ml Pen.injctr, 1.5 MG SQ WEEKLY for DIABETES, EACH 05/29/18 Hydrocortisone (HYDROCORTISONE) 5 Mg Tablet, 2 TAB PO DAILYWSUP for HX OF HYPOPITUATARY, TAB 05/29/18 Hydrocortisone (HYDROCORTISONE) 5 Mg Tablet, 3 TAB PO DAILY08 for HX OF HYPOPITUATARY, TAB 2/11/19 Acetaminophen (ACETAMINOPHEN) 500 Mg Tablet, 500 MG PO PRN TID PRN for PAIN, TAB 05/29/18 Cholecalciferol (Vitamin D3) (VITAMIN D) 2,000 Unit Capsule, 2000 UNIT PO DAILY for SUPPLEMENT, CAP 05/29/18 Levothyroxine Sodium (LEVOTHYROXINE SODIUM) 175 Mcg Tablet, 1 TAB PO DAILY, #30 TAB 5 Refills 08/14/14 Metformin Hcl (METFORMIN HCL) 500 Mg Tablet, 1 TAB PO BID, #60 TAB 3 Refills 08/14/14 Discontinued Reported Medications Warfarin Sodium (COUMADIN) 6 Mg Tablet, 1 TAB PO DAILY for blood thinner, #30 TAB 06/16/18 HERNANDO ZAMBRANO MD Jul 16, 2021 16:26
== END 2021-07-16 17:43 | DRG 65 ==
LOC: ER 21:17 → 5 NORTH 07-14 01:32
PROVIDERS: ADMIT Student in an Organized Health Care Education/Training Program; ATTEND Student in an Organized Health Care Education/Training Program
DX: I63.9 Cerebral infarction, unspecified (principal); E23.0 Hypopituitarism; E89.0 Postprocedural hypothyroidism; E11.40 Type 2 diabetes mellitus with diabetic neuropathy, unspecified; E78.00 Pure hypercholesterolemia, unspecified; E78.5 Hyperlipidemia, unspecified; H91.91 Unspecified hearing loss, right ear; I10 Essential (primary) hypertension; G89.29 Other chronic pain; M54.9 Dorsalgia, unspecified; R27.0 Ataxia, unspecified; R47.1 Dysarthria and anarthria; Z20.822 Contact with and (suspected) exposure to COVID-19; R47.81 Slurred speech; R29.701 NIHSS score 1; Z86.73 Personal history of transient ischemic attack (TIA), and cerebral infarction without residual deficits; Z82.5 Family history of asthma and other chronic lower respiratory diseases; Z83.3 Family history of diabetes mellitus; Z79.84 Long term (current) use of oral hypoglycemic drugs
CPT/HCPCS: 96360; 99291; C8929; 36415; 70450; 70496; 70498; 70551; 71045; 80053; 80061; 82962; 83036; 84443; 84484; 85025; 85610; 85730; 93005; J7040; Q9956; Q9967; U0003; 92526-GN; 92610-GN; 97116-GP; 97530-GO; 97535-GO; G0378